=== PATIENT | male | born 1935 | race Caucasian/White ===

== ENCOUNTER 2016-11-12 15:43 | Inpatient (IN) ==
[2016-11-12] MEDS ORDERED: Ondansetron 4 MG/2 ML VIAL IVP ONE (17:53)
[2016-11-12] MEDS ORDERED: *HR* Morphine 2 MG/ML SYRINGE IVP ONE (17:53)
[2016-11-12] MEDS ORDERED: 0.9 % Sodium Chloride 1,000 ML IVC ONE (17:53)
[2016-11-12 18:19] LABS: Basophils % 0.4 %; Eosinophils # 0.1 K/mcL (0.0-0.6); Eosinophils % 0.7 %; Hematocrit 38.9 % (37.5-50.1); Hemoglobin 12.8 g/dL (12.9-16.9); Lymphocytes # 0.5 K/mcL (0.6-4.6); Mean Corpuscular HGB Conc 32.9 g/dL (31.6-35.5); Mean Corpuscular Volume 97.3 fL (83.0-100.0); Mean Platelet Volume 9.2 fL (9.4-12.4); Monocytes # 0.4 K/mcL (0.0-1.3); Neutrophils # 6.2 K/mcL (1.6-8.9); Platelet Count 165 K/mcL (140-400); Red Cell Distribution Width 14.6 % (11.5-14.5); Segmented Neutrophils % 86.9 %
[2016-11-12 18:25] LABS: INR 1.1; Prothrombin Time 11.8 Seconds (9.4-12.1)
[2016-11-12 18:27] LABS: Activated Partial Thrombo Time 31.9 Seconds (26.0-36.0)
[2016-11-12 18:31] LABS: BUN/Creatinine Ratio 21 (6-26); Blood Urea Nitrogen 24 mg/dL (8-26); Calcium 9.5 mg/dL (8.6-10.8); Carbon Dioxide 24 mEq/L (19-29); Chloride 107 mEq/L (98-109); Glucose 89 mg/dL (70-99); Osmolality,Calculated 296 (280-300); Potassium 4.3 mEq/L (3.5-4.5); Sodium 141 mEq/L (136-145); eGFR For African Americans > 60 (> 60); eGFR For Non-African Americans > 60 (> 60)
--- NOTE | 2016-11-12 18:52 | Emergency Department Note ---
Disposition Clinical Impression: Esophageal cancer Qualifiers: Malignant neoplasm of esophagus location: unspecified location Qualified Code(s ): C15.9 - Malignant neoplasm of esophagus, unspecified Dysphagia Qualifiers: Dysphagia type: unspecified Qualified Code(s): R13.10 - Dysphagia, unspecified Disposition: Still a Patient Condition: Good General Adult HPI - General Chief complaint: ED General Medical Stated complaint: vomiting Time Seen by Provider: 11/12/16 17:52 Source: patient, family Limitations: no limitations, physical limitation Nursing Notes Reviewed: Yes Vital Signs Reviewed: Yes - History of Present Illness HPI Narrative: 81-year-old male with a history of esophageal cancer presents with concerns of difficulty swallowing. Patient states he has had increased difficulty with swallowing over the past few weeks however yesterday he has been unable to tolerate even fluids. Patient states this is been an ongoing issue, he had a history of esophageal resection 4 years ago. He also had a history of an esophageal dilation. Patient states he was scheduled for an endoscopy with Dr. Rosas for evaluation of possible stricture with possible further endoscopy. Patient denies fever, chills, nausea, vomiting. He does feel mildly lightheaded because he has been unable to tolerate fluids. Patient does report chest pain to the sternal area that radiates to his back. He denies diaphoresis , palpitations, shortness of breath. Pain Scale: 6 - Related Data Home Medications Medication Instructions Recorded Confirmed No Known Home Drugs 08/01/15 11/12/16 Allergies Allergy/AdvReac Type Severity Reaction Status Date / Time No Known Allergies Allergy Verified 11/12/16 19:55 All systems ED: reviewed and negative except as stated. Past Medical History - Past Medical History Attestation: Yes The following information was validated with the patient. Source: patient Medical history: Reports: cancer Psychiatric history: Reports: no psych history - Social History Smoking Status: Never smoker Smokeless Tobacco Status: No Alcohol use: Reports: none Drug use: Reports: none Physical Exam General: Alert and in no acute distress Skin: Warm, dry, intact Head: Normocephalic and atraumatic Neck: Supple, trachea midline and no tenderness Cardiovascular: RRR, 6 systolic murmur present on exam. normal perfusion Respiratory: CTAB, no wheezing, cough, or respiratory distress Musculoskeletal: Normal strength, no tenderness, swelling or deformity GI: Soft, nontender, nondistended. Bowel sounds present Neuro: A&O to person, place, time and situation. No focal deficits noted on exam Psychiatric: cooperative and appropriate mood and affect. - General Limitations: physical limitation General appearance: alert, in no apparent distress Course Vital Signs Temperature 97.4 F L 11/12/16 15:50 Pulse Rate 78 11/12/16 15:50 Respiratory Rate 16 11/12/16 15:50 Blood Pressure 122/79 11/12/16 15:50 O2 Sat by Pulse Oximetry 99 11/12/16 15:50 Temperature 97.4 F L 11/12/16 15:50 Pulse Rate 69 11/12/16 19:09 Respiratory Rate 18 11/12/16 19:58 Blood Pressure 137/89 11/12/16 19:58 O2 Sat by Pulse Oximetry 97 11/12/16 19:09 Oxygen Delivery Oxygen Delivery Room Air Medical Decision Making - MDM Narrative Medical decision making narrative: Spoke with Dr. Pizano who was on for endoscopy. She advised to obtain a XR upper GI series and admit to the hospitalist to see GI in the AM. I was initially told GI not available tomorrow and was going to transfer pt to [facility]. Dr. Pizano called again specifically to state Dr. Escalona present in the Hospital tomorrow for consult. Pt tolerating secretions in the ED. VSS. pt feels comfortable with the plan for admission. - Medical Records Medical records reviewed: Yes I reviewed the patient's medical records. - Lab Data Lab results reviewed: Yes I reviewed the patient's lab results. Result diagrams: 11/12/16 17:44 11/12/16 17:44 Lab Results 11/12/16 11/12/16 11/12/16 Range/Units 17:44 17:44 18:12 WBC 7.1 (4.3-11.1) K/mcL RBC 4.00 L (4.19-5.50) M/mcL Hgb 12.8 L (12.9-16.9) g/dL Hct 38.9 (37.5-50.1) % MCV 97.3 (83.0-100.0) fL MCH 32.0 (28.0-33.3) pg MCHC 32.9 (31.6-35.5) g/dL RDW 14.6 H (11.5-14.5) % Plt Count 165 (140-400) K/mcL MPV 9.2 L (9.4-12.4) fL Immature Gran % 0.0 (0-4) % Seg Neutrophils % 86.9 % Lymphocytes % 7.0 % Monocytes % 5.0 % Eosinophils % 0.7 % Basophils % 0.4 % Neutrophils # 6.2 (1.6-8.9) K/mcL Lymphocytes # 0.5 L (0.6-4.6) K/mcL Monocytes # 0.4 (0.0-1.3) K/mcL Eosinophils # 0.1 (0.0-0.6) K/mcL Basophils # 0.0 (0.0-0.2) K/mcL PT 11.8 (9.4-12.1) Seconds INR 1.1 APTT 31.9 (26.0-36.0) Seconds Sodium 141 (136-145) mEq/L Potassium 4.3 (3.5-4.5) mEq/L Chloride 107 (98-109) mEq/L Carbon Dioxide 24 (19-29) mEq/L BUN 24 (8-26) mg/dL Creatinine 1.15 (0.72-1.25) mg/dL Est GFR ( Amer) > 60 (> 60) Est GFR (Non-Af Amer) > 60 (> 60) BUN/Creatinine Ratio 21 (6-26) Glucose 89 (70-99) mg/dL Calculated Osmolality 296 (280-300) Calcium 9.5 (8.6-10.8) mg/dL Troponin I (0-0.03) ng/mL 11/12/16 Range/Units 18:12 WBC (4.3-11.1) K/mcL RBC (4.19-5.50) M/mcL Hgb (12.9-16.9) g/dL Hct (37.5-50.1) % MCV (83.0-100.0) fL MCH (28.0-33.3) pg MCHC (31.6-35.5) g/dL RDW (11.5-14.5) % Plt Count (140-400) K/mcL MPV (9.4-12.4) fL Immature Gran % (0-4) % Seg Neutrophils % % Lymphocytes % % Monocytes % % Eosinophils % % Basophils % % Neutrophils # (1.6-8.9) K/mcL Lymphocytes # (0.6-4.6) K/mcL Monocytes # (0.0-1.3) K/mcL Eosinophils # (0.0-0.6) K/mcL Basophils # (0.0-0.2) K/mcL PT (9.4-12.1) Seconds INR APTT (26.0-36.0) Seconds Sodium (136-145) mEq/L Potassium (3.5-4.5) mEq/L Chloride (98-109) mEq/L Carbon Dioxide (19-29) mEq/L BUN (8-26) mg/dL Creatinine (0.72-1.25) mg/dL Est GFR ( Amer) (> 60) Est GFR (Non-Af Amer) (> 60) BUN/Creatinine Ratio (6-26) Glucose (70-99) mg/dL Calculated Osmolality (280-300) Calcium (8.6-10.8) mg/dL Troponin I 0.00 (0-0.03) ng/mL - Radiology Data Radiology results reviewed: Yes I reviewed the patient's radiology results. - EKG Data EKG #1 EKG attestation: Yes I reviewed and interpreted this EKG. EKG results narrative: ECG - interpreted by ED physician. Rate 86, normal sinus rhythm, no STEMI, NC, QT intervals, and QRS within normal limits
[2016-11-12] MEDS ORDERED: *HR* Morphine 2 MG/ML SYRINGE IVP PRN (20:43)
[2016-11-12] MEDS ORDERED: Ondansetron 4 MG/2 ML VIAL IVP PRN (20:43)
[2016-11-12] MEDS ORDERED: Naloxone 0.4 MG/ML INJ IVP PRN (20:43)
--- NOTE | 2016-11-12 20:50 | Internal Med History&Physical ---
Date of Encounter: 11/12/16 Time of Encounter: 20:35 Assessment and Plan (1) Dysphagia Current visit: Yes Status: Acute Acute dysphagia - secondary to esophageal stricture at the level of esophagogastric anastomosis NPO, IV fluids, IV Morphine when necessary IV Zofran when necessary, IV Protonix daily Chest x-ray - calcified pleural plaques, small bilateral pleural effusion otherwise no acute process Upper GI series - minimal passage of contrast into the gastric pull-up, concerning for stricture EKG - normal sinus rhythm with no acute ST-T changes Troponin - negative Gastroenterology consult pending - patient will likely need EGD with dilation Surgery consult - ED physician discussed with Dr. Pizano, advised GI consult as Dr. Escalona is available tomorrow Cardiac telemetry, labs in a.m. 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 and status post esophagectomy with gastric pull- through (2011), now in remission Qualifiers: Malignant neoplasm of esophagus location: unspecified location Qualified Code(s): C15.9 - Malignant neoplasm of esophagus, unspecified (3) Weight loss, unintentional Current visit: Yes Status: Chronic Unclear etiology - unintentional weight loss for the past one year possibly due to poor PO intake (4) DVT prophylaxis Current visit: Yes Status: Acute Continue heparin subcutaneous Internal Medicine - H&P: HPI Chief complaint: Vomiting and difficulty swallowing Admitted From: Emergency Dept Plans for Post Hospital Care: Home History of present illness: Mr. 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 Patient presents to the ED with complaints of vomiting and difficulty swallowing. On examination patient is awake and alert. Not in any distress. Sitting up comfortably. Able to provide HISTORY. No family members at bedside. Patient states he initially developed some generalized chest discomfort a few weeks ago. He had discussed with his surgeon, and was advised to follow up as outpatient for evaluation of possible esophageal stricture. About 2 days ago patient states he had difficulty swallowing soft foods and even liquids. He states that he was bringing up everything that he would try to eat or drink. Symptoms are worse with food intake. No alleviating factors. He states he usually eats about 6 small meals per day ever since he had his surgery in 2011. Patient also reports mild lightheadedness as he has not had any food or fluid intake for the past 2 days. He states he does have chest discomfort with food intake which is on the chest and radiates to her back at times. He denies shortness of breath, denies dizziness, denies headache or palpitations. No fever or abdominal pain or diarrhea or chills or night sweats. Patient does complain of unintentional weight loss over the past one year. States he has lost almost 30-40 pounds. Initial evaluation in the ED with upper GI series revealed minimal passage of contrast, concerning for stricture at the level of the esophagogastric anastomosis. No other acute abnormalities. ED physician discussed with on- call surgeon, and was advised to consult GI. Patient is being admitted for esophageal stricture. He will be kept nothing by mouth and will be on IV fluids. GI consult is pending. Patient will likely need EGD with esophageal stricture dilation. Patient has been explained about his condition and plan of care. He understood and agreed. No unanswered questions. CODE STATUS full code. Past Med Surg Social Fam HX - Past Medical History Medical history: cancer Psychiatric history: no psych history - Past Surgical History Surgical History: other (Esophagectomy with gastric pull-through in 2011,, esophageal dilation, tonsillectomy) - Social History Smoking Status: Former smoker Smokeless Tobacco Status: No Alcohol use: rarely Drug use: none Current living situation: Home - Independent - Family History Brother Hx Family Medical Disorders: Yes Internal Medicine - H&P: Meds No Known Home Drugs 08/01/15 [History] Allergies No Known Allergies Allergy (Verified 11/12/16 19:55) All Systems PM: A 10-system review of systems was performed and is negative for pertinent findings except as documented above in the HPI. - Constitutional Constitutional: fatigue, weakness, weight loss, no fever(s), no falls, no night sweats - EENT Eyes: no blurry vision - Cardiovascular Cardiovascular ROS IM: chest pain (Chest discomfort), lightheadedness, no diaphoresis, no dyspnea, no dyspnea on exertion, no edema, no orthopnea, no syncope - Respiratory Respiratory: no cough, no dyspnea, no hemoptysis, no dyspnea on exertion, no chest congestion - Gastrointestinal Gastrointestinal: dysphagia, nausea, vomiting, no abdominal pain, no belching, no bloating, no constipation, no cramping, no diarrhea, no hematochezia, no melena - Genitourinary Genitourinary ROS male: no dysuria - Musculoskeletal Musculoskeletal ROS IM: no arthralgias - Neurological Neurological ROS: no abnormal gait, no abnormal speech, no dizziness, no focal weakness, no loss of vision, no numbness, no tingling - Constitutional Vitals: Temp Pulse Resp BP Pulse Ox 97.6 F 73 16 137/77 100 11/12/16 20:15 11/12/16 20:15 11/12/16 20:15 11/12/16 20:15 11/12/16 20:15 General appearance: Present: A&O X 3, pleasant, no acute distress, underweight, loss of weight, answers questions appropriately Exam: Frail appearing - Head Head exam: Present: atraumatic - Eye Eye exam: Present: EOMI - ENT ENT exam: Present: mucous membranes dry - Neck Neck exam general surgery: Present: supple - Respiratory Respiratory exam: Present: CTAB. Absent: rales, rhonchi, wheezes, tachypnea - Cardiovascular Cardiovascular exam: Present: RRR, +S1, +S2 - GI/Abdominal GI/Abdominal exam: Present: soft, no peritoneal signs. Absent: distended, firm , guarding, rigid, tenderness - Extremities Exam Extremities exam: Present: radial pulses palpable and symetrical. Absent: cyanotic, pedal edema, tenderness - Neurological Exam Neurological exam: Present: alert, oriented X3, no focal deficits. Absent: facial droop, speech deficit Internal Med - H&P Results - Labs CBC & Chem 7: 11/12/16 17:44 11/12/16 17:44
[2016-11-12] MEDS: Pantoprazole 40 MG VIAL IVP SCH (21:46)
[2016-11-13] MEDS ORDERED: *HR* Heparin 5,000 UNIT/ML VIAL SQ SCH (06:00)
[2016-11-13] MEDS ORDERED: Dextrose Gel 15 GM PO PRN ×2 (06:02)
[2016-11-13] MEDS ORDERED: D5% in Water 1,000 ML IVC PRN (06:02)
[2016-11-13] MEDS: 0.9 % Sodium Chloride 1,000 ML IVC SCH ×3 (06:15→19:20)
[2016-11-13] MEDS: *HR* Dextrose 50 % in Water (Syg) 50 ML SYRINGE IVP PRN ×2 (06:16→16:20)
[2016-11-13 06:19] LABS: Bilirubin,Urine Small (Negative); Blood,Urine Negative (Negative); Clarity,Urine Cloudy (Clear); Color,Urine Yellow (Yellow); Glucose,Urine (UA) Normal (Normal); Ketones,Urine 15 mg/dL (Negative); Leukocyte Esterase,Urine Negative (Negative); Nitrite,Urine Negative (Negative); PH,Urine 5.5 pH Units (5.0-8.0); Protein,Urine Negative (Neg-Trace); Urobilinogen,Urine Normal (Normal)
[2016-11-13 06:23] LABS: Hyaline Casts,Urine None Seen per lpf (None-Few); RBC,Urine 0-3 per hpf (0-3); Squamous Epithelial Cell,Urine Moderate per lpf (None-Few)
[2016-11-13 06:31] LABS: Basophils % 0.5 %; Eosinophils # 0.1 K/mcL (0.0-0.6); Eosinophils % 1.3 %; Hematocrit 34.8 % (37.5-50.1); Immature Granulocytes % 0.3 % (0-4); Immature Platelets 1.4 % (1.1-6.1); Lymphocytes # 0.4 K/mcL (0.6-4.6); Lymphocytes % 6.7 %; Mean Corpuscular HGB Conc 32.2 g/dL (31.6-35.5); Mean Corpuscular Hemoglobin 31.7 pg (28.0-33.3); Mean Corpuscular Volume 98.6 fL (83.0-100.0); Mean Platelet Volume 8.6 fL (9.4-12.4); Monocytes # 0.4 K/mcL (0.0-1.3); Monocytes % 6.2 %; Neutrophils # 5.2 K/mcL (1.6-8.9); Platelet Count 189 K/mcL (140-400); Red Blood Count 3.53 M/mcL (4.19-5.50); Red Cell Distribution Width 14.7 % (11.5-14.5)
[2016-11-13 06:37] LABS: Hemoglobin 11.2 g/dL (12.9-16.9)
[2016-11-13 06:38] LABS: Bacteria,Urine Few per hpf (None-Few)
[2016-11-13 06:45] LABS: BUN/Creatinine Ratio 25 (6-26); Blood Urea Nitrogen 25 mg/dL (8-26); Calcium 8.9 mg/dL (8.6-10.8); Carbon Dioxide 28 mEq/L (19-29); Chloride 108 mEq/L (98-109); Glucose 69 mg/dL (70-99); Magnesium 2.1 mg/dL (1.6-2.6); Osmolality,Calculated 297 (280-300); Potassium 4.2 mEq/L (3.5-4.5); Sodium 142 mEq/L (136-145); eGFR For African Americans > 60 (> 60); eGFR For Non-African Americans > 60 (> 60)
[2016-11-13] MEDS: Pantoprazole 40 MG VIAL IVP SCH (09:09)
--- NOTE | 2016-11-13 10:15 | Internal Med Progress Note ---
Date of Encounter: 11/13/16 Time of Encounter: 10:12 - Assessment and plan (1) Dysphagia Current Visit: Yes Status: Acute Assessment and plan: Patient presents with gradually progressive dysphagia to both solids and liquids. Patient is status post esophagectomy with gastric pull-up for esophageal cancer. Case discussed with gastroenterology. Patient underwent EGD that showed copious amount of food particles in the remaining esophagus. Recommend clear liquid diet, repeat EGD tomorrow under general anesthesia. Hold medical anticoagulation for DVT prophylaxis. Qualifiers: Dysphagia type: esophageal phase Qualified Code(s): R13.14 - Dysphagia, pharyngoesophageal phase (2) Weight loss, unintentional Current Visit: Yes Status: Chronic Assessment and plan: Likely due to dysphagia and poor oral intake. (3) Esophageal cancer Current Visit: Yes Status: Resolved Qualifiers: Malignant neoplasm of esophagus location: unspecified location Qualified Code(s): C15.9 - Malignant neoplasm of esophagus, unspecified - Subjective Interval history: No abdominal pain, nausea, vomiting; does have dysphagia to solids and liquids; awaiting GI evaluation and possible EGD today; - Constitutional Vitals: Temp Pulse Resp BP Pulse Ox 98.1 F 83 16 127/70 100 11/13/16 07:19 11/13/16 07:19 11/13/16 07:19 11/13/16 07:19 11/13/16 07:19 General appearance: Present: cachectic, A&O X 3, loss of weight, answers questions appropriately - Respiratory Respiratory exam: Present: CTAB. Absent: accessory muscle use, rales, rhonchi, wheezes - Cardiovascular Cardiovascular exam: Present: RRR, +S1, +S2. Absent: diastolic murmur, gallop, rubs, systolic murmur - GI/Abdominal GI/Abdominal exam: Present: normal bowel sounds, soft, no peritoneal signs. Absent: distended, tenderness - Extremities Exam Extremities exam: Present: full ROM, warm, radial pulses palpable and symetrical. Absent: calf tenderness, cyanotic, pedal edema Internal Medicine: Result - Labs CBC & Chem 7: 11/13/16 06:08 11/13/16 06:08 Labs: Short CBC 11/13/16 Range/Units 06:08 WBC 6.1 (4.3-11.1) K/mcL Hgb 11.2 L D (12.9-16.9) g/dL Hct 34.8 L (37.5-50.1) % Plt Count 189 (140-400) K/mcL Neutrophils # 5.2 (1.6-8.9) K/mcL BMP 11/13/16 06:08 Sodium 142 Potassium 4.2 Chloride 108 Carbon Dioxide 28 BUN 25 Creatinine 0.99 Glucose 69 L Calcium 8.9 Urine 11/13/16 Range/Units 05:50 Urine Color Yellow (Yellow) Urine Clarity Cloudy A (Clear) Urine pH 5.5 (5.0-8.0) pH Units Ur Specific [place] 1.030 H (1.010-1.025) Urine Protein Negative (Neg-Trace) mg/dL Urine Glucose (UA) Normal (Normal) mg/dL - ABG Interpretation ABG results: PT/INR, D-dimer PT 11.8 Seconds (9.4-12.1) 11/12/16 18:12 Consult Discharge Plan - Plan Referrals: Glenn Riley DO [Primary Care Provider] -
[2016-11-13] MEDS ORDERED: Simethicone 40 MG/0.6 ML MLS IR ONE (13:20)
[2016-11-13] MEDS ORDERED: Tetracaine/Benzocaine/Butamben 200MG/SPRAY (100SPY/BOT) MM ONE (13:20)
--- NOTE | 2016-11-13 13:33 | Anesthesia Evaluation PreOp ---
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: Denies Any Significant HX Other Medical History: Other (hx esophageal ca s/p surgery and chemo/radiation in 2011; recent dysphagia and weight loss) Anesthesia History: No Prior Anesthetic Complications Alcohol Use: rarely Drug use: none Medications and Allergies No Known Home Drugs 08/01/15 [History] Allergies No Known Allergies Allergy (Verified 11/12/16 19:55) - Meds/Allergy Pre-op Review Medications Reviewed: Yes Allergies Reviewed: Yes Beta Blockers on Current Med List: No Anesthesia Results - Labs 11/13/16 06:08 11/13/16 06:08 - Imaging EKG: report reviewed, image reviewed (SB) Anesthesia Exam Last Vital Signs Temp 97.9 F 11/13/16 13:17 Pulse 65 11/13/16 13:17 Resp 16 11/13/16 13:17 BP 142/79 11/13/16 13:17 Pulse Ox 99 11/13/16 13:17 Weight: 59 kg NPO (# of Hours): >> 8 hrs - HEENT Pupil (Motor): Pupils equal, EOMI Mallampati: I Teeth: Normal Oral Opening: Greater than 3 - FILTER PRESS TENDER HEAD LOC: Oriented FILTER PRESS TENDER HEAD Motor: Normal RUE, Normal LUE, Normal RLE, Normal LLE, Normal Face - Cardiac Rhythm: Regular Murmur: None - Pulmonary Breath Sounds: bilateral Clear Respiratory Effort: Symmetrical Anesthesia Assess/Plan ASA Score: 2 Modified [place] Scale for Level of Consciousness: Cooperative, oriented, and tranquil Anesthetic Plan: MAC Monitoring Plan: Standard Monitors Recovery Plan: PACU
--- NOTE | 2016-11-13 15:06 | Anesthesia Evaluation Post Op ---
Date of Encounter: 11/13/16 Time of Encounter: 15:05 - Vital Signs Vital Signs: 3 Vital Signs Time 1504 BP 126/79 Pulse 64 Resp 20 O2 Sat 99 - Lungs Lungs: Clear Ascult./Percussion - Airway Airway: Non-obstructed - Cardiovascular Regular Rate - Mental Status Mental Status: Asleep with brisk response to light stimulation - Nausea Vomiting Nausea Vomiting: Not Present - Hydration Hydration: NPO, Has not voided - Discharge PostOp Status: Transfer Patient to floor
[2016-11-13] MEDS: D5% in 0.45% NACL 1,000 ML IVC SCH (16:19)
--- NOTE | 2016-11-13 17:55 | Gastroenterology Consult Note ---
Date of Encounter: 11/13/16 Time of Encounter: 13:00 - Assessment and plan (1) Dysphagia Current Visit: Yes Status: Acute Assessment and plan: In this patient with a history of esophagus cancer status post chemoradiation and esophagectomy. Worsening dysphagia now along with weight loss concern is for recurrence of the tumor or stricture at the anastomosis site. Plan is for EGD today with possible dilation if found to have a stricture Qualifiers: Dysphagia type: esophageal phase Qualified Code(s): R13.14 - Dysphagia, pharyngoesophageal phase (2) Esophageal cancer Current Visit: Yes Status: Resolved Assessment and plan: Has had chemoradiation and then surgery and is being followed with oncology currently in remission. Qualifiers: Malignant neoplasm of esophagus location: unspecified location Qualified Code(s): C15.9 - Malignant neoplasm of esophagus, unspecified - Time Spent With Patient Total time spent is greater than 50% in coordination of care (as documented) at patient's floor/unit and/or counseling patient: GI History of Present Illness - Data of Consult Consult date: 11/13/16 Requesting Physician: Bina Reyes MD - Consult Narrative Reason for consult: Dysphagia in this patient with a history of esophagus cancer History of present illness: Mr. 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 Patient has been having difficulty swallowing for the last 6-8 month. And has lost about 100 pounds in the last 1 year. Lately his been having trouble swallowing liquids as well. Admitted this time because of dysphagia and had a barium swallow done which showed a stricture at the esophageal gastric anastomosis. Past Med Surg Social Fam HX - Past Medical History Medical history: cancer Psychiatric history: no psych history - Past Surgical History Surgical History: other (Esophagectomy with gastric pull-through in 2011,, esophageal dilation, tonsillectomy) - Social History Smoking Status: Former smoker Smokeless Tobacco Status: No Alcohol use: rarely Drug use: none - Family History Brother Hx Family Medical Disorders: Yes Review of Systems: GI: as per [facility] GENERAL: denies fever, has some chills EYES: denies yellow discoloration ENT: denies pain with swallowing or difficulty swallowing CARDIO: denies chest pain, palpitations RESP: denies shortness of breath or wheezing : denies change in color of urine NEURO: denies any weakness HEME: Denies any bruising MS: denies joint pain, joint swelling or back pain. DERM: denies rash or itching PSYCH: denies history of: depression or anxiety - Constitutional Vitals: Temp Pulse Resp BP Pulse Ox 97.4 F L 57 14 141/71 100 11/13/16 16:08 11/13/16 16:08 11/13/16 16:08 11/13/16 16:08 11/13/16 16:08 General appearance: Present: cachectic, A&O X 3 - Head Head exam: Present: atraumatic, normocephalic - Eye Eye exam: Present: conjunctival injection, sclera anicteric - Neck Additional comments: Left side of the neck patient has a long scar of his previous esophageal surgery - Respiratory Additional comments: Bilateral good air entry - Cardiovascular Additional comments: S1-S2 and rhythm is regular, left upper chest has a port in place - GI/Abdominal Additional comments: Sunken stomach due to significant wasting loss but no focal tenderness does has scar in upper abdomen because of previous esophagus surgery - Extremities Exam Extremities exam: Present: normal inspection, warm - Skin Skin exam: Present: dry, warm Results - Labs CBC & Chem 7: 11/13/16 06:08 11/13/16 06:08 Labs: Last Result Calcium 8.9 mg/dL (8.6-10.8) 11/13/16 06:08 Troponin I 0.00 ng/mL (0-0.03) 11/12/16 18:12 Entire Visit Hgb 11.2 g/dL (12.9-16.9) L D 11/13/16 06:08 Hct 34.8 % (37.5-50.1) L 11/13/16 06:08 PT 11.8 Seconds (9.4-12.1) 11/12/16 18:12 - ABG ABG results: PT/INR, D-dimer PT 11.8 Seconds (9.4-12.1) 11/12/16 18:12 Consult Discharge Plan - Plan Referrals: Glenn Riley DO [Primary Care Provider] -
[2016-11-14] MEDS: D5% in 0.45% NACL 1,000 ML IVC SCH ×2 (04:11→16:43)
[2016-11-14 05:17] LABS: Basophils % 0.2 %; Eosinophils # 0.1 K/mcL (0.0-0.6); Eosinophils % 0.5 %; Hemoglobin 12.5 g/dL (12.9-16.9); Immature Granulocytes % 0.4 % (0-4); Lymphocytes # 0.4 K/mcL (0.6-4.6); Lymphocytes % 3.9 %; Mean Corpuscular HGB Conc 32.9 g/dL (31.6-35.5); Mean Corpuscular Hemoglobin 32.1 pg (28.0-33.3); Mean Corpuscular Volume 97.4 fL (83.0-100.0); Mean Platelet Volume 9.2 fL (9.4-12.4); Monocytes # 0.5 K/mcL (0.0-1.3); Monocytes % 4.6 %; Neutrophils # 9.9 K/mcL (1.6-8.9); Platelet Count 181 K/mcL (140-400); Red Cell Distribution Width 14.3 % (11.5-14.5); Segmented Neutrophils % 90.4 %
[2016-11-14 05:31] LABS: BUN/Creatinine Ratio 21 (6-26); Blood Urea Nitrogen 19 mg/dL (8-26); Calcium 8.9 mg/dL (8.6-10.8); Carbon Dioxide 28 mEq/L (19-29); Chloride 106 mEq/L (98-109); Glucose 94 mg/dL (70-99); Magnesium 1.9 mg/dL (1.6-2.6); Osmolality,Calculated 292 (280-300); Potassium 4.1 mEq/L (3.5-4.5); Sodium 140 mEq/L (136-145); eGFR For African Americans > 60 (> 60); eGFR For Non-African Americans > 60 (> 60)
--- NOTE | 2016-11-14 07:51 | Electrocardiograph Report ---
[address] [address] Test Date: 2016-11-13 Pat Name: Benjamin Munoz Department: 115 Room: 3A46 Gender: M Media Assistant: JUAN : 1935 Requested By: Marc Rondon Order Number: [id number] Reading MD: Wil Simon MD Measurements Intervals [place] Rate: 53 P: 75 TX: 169 QRS: 35 QRSD: 90 T: 44 QT: 456 QTc: 440 Interpretive Statements SINUS BRADYCARDIA Electronically Signed On 11-14-2016 7:49:53 EDT by Wil Simon MD
[2016-11-14] MEDS: Pantoprazole 40 MG VIAL IVP SCH (09:02)
[2016-11-14 11:57] LABS: Hemoglobin A1C 5.5 %
--- NOTE | 2016-11-14 14:50 | Anesthesia Evaluation PreOp ---
Date of Encounter: 11/14/16 Time of Encounter: 14:47 - Past History Planned Operation: EGD Cardiac History: Denies any Significant Hx Pulmonary History: Smoker (Occasional) PORTER BAGGAGE History: Denies Any Significant HX Other Medical History: Denies Any Significant HX, Other (Esophageal CA) Anesthesia History: No Prior Anesthetic Complications, Past Anesthesia ( Esophagectomy s/p radiation/Chemo) Alcohol Use: rarely Drug use: none Medications and Allergies No Known Home Drugs 08/01/15 [History] Allergies No Known Allergies Allergy (Verified 11/12/16 19:55) - Meds/Allergy Pre-op Review Medications Reviewed: Yes Allergies Reviewed: Yes Beta Blockers on Current Med List: No Anesthesia Results - Labs 11/14/16 04:25 11/14/16 04:25 - Imaging EKG: image reviewed (SB) Anesthesia Exam O2 Sat Weight 59.92 kg Weight 59.92 kg O2 Sat by Pulse Oximetry 100 O2 Sat by Pulse Oximetry 97 O2 Sat by Pulse Oximetry 97 O2 Sat by Pulse Oximetry 97 O2 Sat by Pulse Oximetry 99 O2 Sat by Pulse Oximetry 99 O2 Sat by Pulse Oximetry 100 Vital Signs Temp Pulse Resp BP Pulse Ox 97.4 F L 78 16 122/79 99 11/12/16 15:50 11/12/16 15:50 11/12/16 15:50 11/12/16 15:50 11/12/16 15:50 Vital Signs/O2 Sat, Most Current Temp Pulse Resp BP Pulse Ox 97.4 F L 55 16 119/67 100 11/14/16 11:11 11/14/16 11:11 11/14/16 11:11 11/14/16 11:11 11/14/16 11:11 Height: 5'9'' Weight: 132# NPO (# of Hours): > 8 hrs Pain Scale: 0 Pain Scale Used: Numeric (1 - 10) - HEENT Pupil (Motor): Pupils equal, EOMI Mallampati: I Teeth: Normal Oral Opening: Greater than 3 - PORTER BAGGAGE LOC: Oriented PORTER [place]AGGAGE Motor: Normal RUE, Normal LUE, Normal RLE, Normal LLE, Normal Face PORTER BAGGAGE Sensory: Normal: RUE, LUE, RLE, LLE, Face - Cardiac Rhythm: Regular Murmur: None JVD: No Carotid Bruit: No - Pulmonary Breath Sounds: bilateral Clear Respiratory Effort: Symmetrical Anesthesia Assess/Plan ASA Score: 3 Modified Suraj Scale for Level of Consciousness: Cooperative, oriented, and tranquil Anesthetic Plan: General Autologous Blood: Yes Monitoring Plan: Standard Monitors Recovery Plan: PACU
--- NOTE | 2016-11-14 15:49 | Internal Med Progress Note ---
Date of Encounter: 11/14/16 Time of Encounter: 12:15 - Assessment and plan (1) Dysphagia Current Visit: Yes Status: Acute Assessment and plan: Patient presents with gradually progressive dysphagia to both solids and liquids. Patient is status post esophagectomy with gastric pull-up for esophageal cancer. Gastroenterology on board. Underwent EGD yesterday that showed copious amount of food particles in the remaining esophagus. awaiting repeat EGD today with general anesthesia and intubation, to remove food particles and prevent aspiration. Hold medical anticoagulation for DVT prophylaxis. Qualifiers: Dysphagia type: esophageal phase Qualified Code(s): R13.14 - Dysphagia, pharyngoesophageal phase (2) Weight loss, unintentional Current Visit: Yes Status: Chronic Assessment and plan: Likely due to dysphagia and poor oral intake. (3) Esophageal cancer Current Visit: Yes Status: Resolved Qualifiers: Malignant neoplasm of esophagus location: unspecified location Qualified Code(s): C15.9 - Malignant neoplasm of esophagus, unspecified (4) Raynaud phenomenon Current Visit: Yes Status: Acute Assessment and plan: Cyanotic distal fingers likely due to Raynaud phenomenon. Supportive care with hot packs. Qualifiers: Raynaud?s-associated gangrene presence: without gangrene Qualified Code(s) : I73.00 - Raynaud's syndrome without gangrene - Subjective Interval history: No abdominal pain, nausea, vomiting; does have dysphagia to solids and liquids; underwent EGD yesterday which showed significant amount of solid food in upper esophagus, awaiting repeat EGD and clean out today. Noted to have left arm swelling associated with blisters. Also has cyanotic fingertips in the right hand. - Constitutional Vitals: Temp Pulse Resp BP Pulse Ox 97.4 F L 55 16 119/67 100 11/14/16 11:11 11/14/16 11:11 11/14/16 11:11 11/14/16 11:11 11/14/16 11:11 General appearance: Present: cachectic, A&O X 3, loss of weight, answers questions appropriately - Respiratory Respiratory exam: Present: CTAB. Absent: accessory muscle use, rales, rhonchi, wheezes - Cardiovascular Cardiovascular exam: Present: RRR, +S1, +S2. Absent: diastolic murmur, gallop, rubs, systolic murmur - GI/Abdominal GI/Abdominal exam: Present: normal bowel sounds, soft, no peritoneal signs. Absent: distended, tenderness - Extremities Exam Extremities exam: Present: normal inspection (Mild cyanosis in the tips of second fourth and fifth fingers of right hand. Bilateral brachial and radial pulses palpable 2+), warm, radial pulses palpable and symetrical. Absent: calf tenderness, cyanotic, pedal edema Internal Medicine: Result - Labs CBC & Chem 7: 11/14/16 04:25 11/14/16 04:25 Labs: Short CBC 11/14/16 Range/Units 04:25 WBC 10.9 D (4.3-11.1) K/mcL Hgb 12.5 L (12.9-16.9) g/dL Hct 38.0 (37.5-50.1) % Plt Count 181 (140-400) K/mcL Neutrophils # 9.9 H (1.6-8.9) K/mcL BMP 11/14/16 04:25 Sodium 140 Potassium 4.1 Chloride 106 Carbon Dioxide 28 BUN 19 Creatinine 0.91 Glucose 94 Calcium 8.9 - ABG Interpretation ABG results: PT/INR, D-dimer PT 11.8 Seconds (9.4-12.1) 11/12/16 18:12 Consult Discharge Plan - Plan Referrals: Glenn Riley DO [Primary Care Provider] -
[2016-11-14] MEDS ORDERED: EPHEDrine 50 MG/ML VIAL ONE (18:29)
[2016-11-14] MEDS ORDERED: *HR* FentaNYL (PF) 100 MCG/2 ML VIAL ONE (18:34)
[2016-11-14] MEDS ORDERED: Lidocaine -MPF 2% 2 ML VIAL ONE (18:34)
[2016-11-14] MEDS ORDERED: *HR* Succinylcholine 200 MG/10 ML VIAL IVP ONE (18:34)
[2016-11-14] MEDS ORDERED: *HR* Propofol 200 MG/20 ML VIAL IVP ONE (18:34)
[2016-11-14] MEDS ORDERED: Ondansetron 4 MG/2 ML VIAL ONE (18:49)
[2016-11-14] MEDS ORDERED: Dexamethasone 4 MG/ML VIAL ONE (18:49)
--- NOTE | 2016-11-14 19:26 | Anesthesia Evaluation Post Op ---
Date of Encounter: 11/14/16 Time of Encounter: 19:26 - Vital Signs Vital Signs: Vital Signs/O2 Sat/Glucose, Most Current Temp Pulse Resp BP Pulse Ox 11/14/16 19:23 98.7 F 72 18 143/84 100 11/14/16 19:13 73 12 152/100 100 11/14/16 19:03 66 20 159/80 100 11/14/16 18:53 98.3 F 67 14 163/80 100 11/14/16 18:00 97.8 F 58 18 110/81 100 11/14/16 16:45 97.8 F 54 16 133/79 100 - Lungs Lungs: Clear Ascult./Percussion - Airway Airway: Non-obstructed - Cardiovascular Regular Rate - Mental Status Mental Status: Alert & Oriented, Answers Appropriately - Pain Pain Scale: 0 - Nausea Vomiting Nausea Vomiting: Not Present - Hydration Hydration: NPO, Has not voided - Discharge PostOp Status: Transfer Patient to floor
[2016-11-14] MEDS: 0.9 % Sodium Chloride 1,000 ML IVC SCH (19:36)
[2016-11-15] MEDS ORDERED: *HR* Propofol 200 MG/20 ML VIAL IVP ONE (07:26)
[2016-11-15] MEDS: Pantoprazole 40 MG VIAL IVP SCH (10:53)
[2016-11-15 11:11] VITALS: BP 111/65
--- NOTE | 2016-11-15 12:57 | Discharge Summary ---
Date of Encounter: 11/15/16 Time of Encounter: 12:55 - Discharge Diagnosis (1) Dysphagia Priority: Primary Status: Acute Qualifiers: Dysphagia type: esophageal phase Qualified Code(s): R13.14 - Dysphagia, pharyngoesophageal phase (2) Weight loss, unintentional Priority: Secondary Status: Chronic (3) Esophageal cancer Priority: Secondary Status: Resolved Qualifiers: Malignant neoplasm of esophagus location: unspecified location Qualified Code(s): C15.9 - Malignant neoplasm of esophagus, unspecified (4) Raynaud phenomenon Priority: Primary Status: Acute Qualifiers: Raynaud?s-associated gangrene presence: without gangrene Qualified Code(s) : I73.00 - Raynaud's syndrome without gangrene - Discharge Medications Prescriptions: Lactose-Reduced Food [Ensure High Protein] 1 bottle PO TID #90 can Omeprazole 20 mg PO DAILY #30 tablet. Sucralfate [Carafate] 1 gm PO BID 30 Days Home Medications: No Known Home Drugs 08/01/15 [History] Lactose-Reduced Food [Ensure High Protein] 1 bottle PO TID #90 can 11/15/16 [Rx] Omeprazole 20 mg PO DAILY #30 tablet. 11/15/16 [Rx] Sucralfate [Carafate] 1 gm PO BID 30 Days 11/15/16 [Rx] Allergies/Adverse Reactions: Allergies No Known Allergies Allergy (Verified 11/12/16 19:55) Date of admission: 11/12/16 20:43 Primary care physician: Glenn Riley, Consults: 11/12/16 20:48 Consult to Gastroenterology [CONS] Routine Consulting Provider: Gastroenterology Theresa Reason for Consult: ESOPHAGEAL stricture Call Completed: No 11/13/16 07:32 Consult to Nutrition [CONS] Routine Comment: Consulting Provider: NUTRITION Reason for Dietary Consult: MST Score 11/13/16 07:48 OT [Consult to Occupational Therapy] [CONS] Routine Comment: Evaluate, develop and implement POC Reason for Consult: discharge planning Discharging clinician: Bina Reyes Anticipated date of discharge: 11/15/16 - Patient Status Disposition: Home, Self-Care Condition: Good Functional capacity at discharge: independent ambulation Overall status at discharge: patient is progressing back to baseline - Discharge Instructions Instructions: Soft Diet (DC), Raynaud Disease (GEN) Follow Up With: Glenn Riley DO [Primary Care Provider] - 11/27/16 9:30 am Jose Escalona MD [Partnered Physician] - 12/06/16 4:30 pm Additional Instructions: F/up with PCP in1-2 weeks F/up with GI in 3-4 weeks - Diet and Activity Activity: resume usual activities as tolerated Diet: other (soft, chopped diet, blended meats only) Hospital course: Mr. Munoz is a 81 year old male with history of esophageal cancer status post esophagectomy and gastric pull-through surgery, was admitted with worsening dysphagia to solids and liquids. He was initially kept nothing by mouth with IV hydration. Gastroenterology was consulted and patient underwent EGD that showed significant amount of solid food in the upper part of his esophagus with proximal esophageal dilation but no stricture or mass at the site of anastomosis. He underwent repeat EGD under general anesthesia and intubation for complete cleanout of his esophagus, which he tolerated well. He is medically stable for discharge at this point. Case was discussed with gastroenterology and patient is being discharged with recommendations to follow only soft chopped diet and blended meats and to avoid large food pieces like steak. He will follow-up with oncology and gastroenterology as outpatient. - Time Spent with Patient Total time spent providing and/or coordinating discharge services: Greater than 30 minutes (45 min) - Constitutional Vitals: Temp Pulse Resp BP Pulse Ox 97.1 F L 83 15 111/65 94 11/15/16 11:09 11/15/16 11:09 11/15/16 11:09 11/15/16 11:09 11/15/16 11:09 General appearance: Present: cachectic, A&O X 3, loss of weight, answers questions appropriately - Cardiovascular Cardiovascular exam: Present: RRR, +S1, +S2. Absent: diastolic murmur, gallop, rubs, systolic murmur
== END 2016-11-15 13:35 | disposition home or self-care (01) | DRG 392 ==
LOC: 3ANU 15:43 → EMEROO 15:43 → 3ANU 19:59 → SUATTDRO 20:43 → 3ANU 11-13 22:22
PROVIDERS: ADMIT Internal Medicine; ATTEND Internal Medicine
PROC: ENDOEBX (2016-11-13 14:00)

== ENCOUNTER 2017-12-23 20:30 | Observation (INO) ==
[2017-12-23] MEDS ORDERED: Ondansetron 4 MG/2 ML VIAL IVP ONE (21:25)
[2017-12-23] MEDS ORDERED: 0.9 % Sodium Chloride 1,000 ML IVC ONE (21:25)
--- NOTE | 2017-12-23 21:37 | Emergency Department Note ---
Disposition Clinical Impression: History of esophageal cancer Dysphagia Qualifiers: Dysphagia type: unspecified Qualified Code(s): R13.10 - Dysphagia, unspecified Disposition: Admitted As Inpatient Condition: Fair Time of Disposition: 22:21 General Adult HPI - General Chief complaint: ED General Medical Stated complaint: Difficulty swallowing Time Seen by Provider: 12/23/17 20:46 Source: patient Mode of arrival: ambulatory Limitations: no limitations Nursing Notes Reviewed: Yes Vital Signs Reviewed: Yes - History of Present Illness HPI Narrative: 82-year-old male with history of esophageal cancer status post surgery chemotherapy and radiation 6 years ago percent for evaluation of dysphagia. Patient states symptom onset was over the past 24 hours. Patient's been not able swallow any liquids. States that he typically has these symptoms about once every 6 months and has to get esophageal dilation. Notes that he was dilated by Dr. Ralph hummel at [facility]. Patient states he has not been able to tolerate any oral intake given his dysphagia. Reports baseline nausea. No abdominal pain. No chest pain or shortness of breath. No fevers. Patient feels that his dysphagia is related to his chest and nothing in the upper esophagus. Pain Scale: 0 - Related Data Home Medications Medication Instructions Recorded Confirmed No Known Home Drugs 08/01/15 07/10/17 Allergies Allergy/AdvReac Type Severity Reaction Status Date / Time No Known Allergies Allergy Verified 07/10/17 13:03 All systems ED: reviewed and negative except as stated. Constitutional: Denies: fever Cardiovascular: Denies: chest pain Respiratory: Denies: cough, dyspnea Gastrointestinal: Reports: nausea. Denies: abdominal pain Past Medical History - Past Medical History Source: patient Medical history: Reports: cancer, kidney stones, pulmonary embolus Surgical history: Reports: cancer surgery, cholecystectomy, other Psychiatric history: Reports: no psych history - Social History Smoking Status: Never smoker Smokeless Tobacco Status: No Alcohol use: Reports: rarely Drug use: Reports: none Physical Exam - General Limitations: no limitations General appearance: alert, in no apparent distress, other (Holding a container spitting up secretions.) - Head Head exam: atraumatic, normocephalic, normal inspection - Eye Eye exam: Present: normal appearance, EOMI - ENT ENT exam: normal exam, mucous membranes moist - Neck Neck exam: Present: normal inspection, trachea midline - Chest Chest inspection: Present: normal inspection, symmetric chest wall rise - Respiratory Respiratory exam: Present: normal lung sounds bilaterally. Absent: respiratory distress - Cardiovascular Cardiovascular exam: Present: regular rate, normal rhythm. Absent: systolic murmur - Abdominal Exam Abdominal exam: Present: soft, Non-Tender - Extremities Exam Extremities exam: Present: normal inspection. Absent: pedal edema - Expanded Lower Extremity Exam Neurovascular/Tendon exam: Present: normal capillary refill - Back Exam Back exam: Present: normal inspection - Neurological Exam Neurological exam: Present: alert, oriented X3, CN II-XII intact - Skin Skin exam: Present: warm, dry, intact, normal color Course Course Narrative: Patient's records reviewed does show that he has esophageal dilation. Most recent was back in June of same year. Patient will be admitted to hospital service concerns of dysphagia with liquids. Discussed the case with Dr. Pizano who states to have the hospitals call Dr. Rosas in the morning. - Reevaluation(s) Reevaluation #1: Patient was seen and examined. Patient was given IV pain medication as he cannot tolerate his oral pain medication. No needs at this time. Time: 23:19 - Consultations Consultation #1: Spoke with Dr. Pizano who requested the hospitalist to call Dr. Rosas in the morning. This info will be given to the Hospitalist. Time: 21:39 Vital Signs Temperature 97.9 F 12/23/17 20:43 Pulse Rate 84 12/23/17 20:43 Respiratory Rate 26 12/23/17 20:43 Blood Pressure 122/83 12/23/17 20:43 O2 Sat by Pulse Oximetry 100 12/23/17 20:43 Temperature 97.9 F 12/23/17 20:43 Pulse Rate 83 12/23/17 23:05 Respiratory Rate 22 12/23/17 23:05 Blood Pressure 140/106 12/23/17 23:05 O2 Sat by Pulse Oximetry 100 12/23/17 23:05 Oxygen Delivery Oxygen Delivery Room Air Medical Decision Making - [facility] Narrative Medical decision making narrative: Patient presents with dysphagia with liquids. History of esophageal cancer. States he typically has to have esophagus dilated. Patient cannot tolerating oral intake and will need admission for IV fluids and monitoring. Initially spoke with Dr. Pizano who instructed The hospitalist call Dr. Rosas in the morning. Patient had basic labs and chest x-ray. At this point there is no need for any additional testing in the ED. There is no concerns for any central etiology of his dysphagia. Patient is agreeable this plan of care. - Lab Data Lab results reviewed: Yes I reviewed the patient's lab results. Result diagrams: 12/23/17 21:50 12/23/17 21:50 Lab Results 12/23/17 12/23/17 Range/Units 21:50 21:50 WBC 9.2 (4.3-11.1) K/mcL RBC 4.25 (4.19-5.50) M/mcL Hgb 14.1 (12.9-16.9) g/dL Hct 41.6 (37.5-50.1) % MCV 97.9 (83.0-100.0) fL MCH 33.2 (28.0-33.3) pg MCHC 33.9 (31.6-35.5) g/dL RDW 14.2 (11.5-14.5) % Plt Count 222 (140-400) K/mcL MPV 8.6 L (9.4-12.4) fL Immature Gran % 0.2 (0-4) % Seg Neutrophils % 90.9 % Lymphocytes % 3.4 % Monocytes % 5.3 % Eosinophils % 0.0 % Basophils % 0.2 % Neutrophils # 8.3 (1.6-8.9) K/mcL Lymphocytes # 0.3 L (0.6-4.6) K/mcL Monocytes # 0.5 (0.0-1.3) K/mcL Eosinophils # 0.0 (0.0-0.6) K/mcL Basophils # 0.0 (0.0-0.2) K/mcL Sodium 142 (136-145) mEq/L Potassium 5.1 (3.5-5.1) mEq/L Chloride 104 (98-107) mEq/L Carbon Dioxide 25 (23-29) mEq/L BUN 22 (8-23) mg/dL Creatinine 1.15 (0.70-1.30) mg/dL Est GFR ( Amer) > 60 (> 60) Est GFR (Non-Af Amer) > 60 (> 60) BUN/Creatinine Ratio 19 (6-26) Glucose 137 H (70-105) mg/dL Calculated Osmolality 299 (280-300) Calcium 9.8 (8.6-10.3) mg/dL - Radiology Data Radiology results reviewed: Yes I reviewed the patient's radiology results. Chest X-Ray 12/23/17 21:25 IMPRESSION: Possible distal dilatation of the esophagus. Otherwise, stable chest D/ / Gentry Flores MD / Gentry Flores MD Interpreting Provider: Gentry Flores MD racy - Khushboo Situation: Demographics Background: Presenting Complaint Assessment: Vital Signs, Course and respsone to treatment, Patient/Family Expectation Recommendation: Barrier(s) to disposition, Recommendation based on pending studies, treatments, or consults Khushboo Report Given to: Dr. Clifton Cuello Repor Time: 22:20
[2017-12-23 22:04] LABS: Basophils % 0.2 %; Hematocrit 41.6 % (37.5-50.1); Hemoglobin 14.1 g/dL (12.9-16.9); Immature Granulocytes % 0.2 % (0-4); Lymphocytes # 0.3 K/mcL (0.6-4.6); Lymphocytes % 3.4 %; Mean Corpuscular HGB Conc 33.9 g/dL (31.6-35.5); Mean Corpuscular Hemoglobin 33.2 pg (28.0-33.3); Mean Corpuscular Volume 97.9 fL (83.0-100.0); Mean Platelet Volume 8.6 fL (9.4-12.4); Monocytes # 0.5 K/mcL (0.0-1.3); Monocytes % 5.3 %; Neutrophils # 8.3 K/mcL (1.6-8.9); Platelet Count 222 K/mcL (140-400); Red Blood Count 4.25 M/mcL (4.19-5.50); Red Cell Distribution Width 14.2 % (11.5-14.5); Segmented Neutrophils % 90.9 %
[2017-12-23 22:19] LABS: BUN/Creatinine Ratio 19 (6-26); Blood Urea Nitrogen 22 mg/dL (8-23); Calcium 9.8 mg/dL (8.6-10.3); Carbon Dioxide 25 mEq/L (23-29); Chloride 104 mEq/L (98-107); Glucose 137 mg/dL (70-105); Osmolality,Calculated 299 (280-300); Potassium 5.1 mEq/L (3.5-5.1); Sodium 142 mEq/L (136-145); eGFR For Non-African Americans > 60 (> 60)
--- NOTE | 2017-12-23 22:23 | Emergency Department Note ---
Disposition Clinical Impression: History of esophageal cancer Dysphagia Qualifiers: Dysphagia type: unspecified Qualified Code(s): R13.10 - Dysphagia, unspecified Disposition: Admitted As Inpatient Condition: Fair Referrals: Glenn Riley DO [Primary Care Provider] - Forms: ED Satisfaction Letter, Work/School Release Time of Disposition: 22:21 General Adult HPI - General Chief complaint: ED General Medical Stated complaint: Difficulty swallowing Time Seen by Provider: 12/23/17 20:46 Source: patient Mode of arrival: ambulatory Limitations: no limitations Nursing Notes Reviewed: Yes Vital Signs Reviewed: Yes - History of Present Illness Pain Scale: 5 - Related Data Home Medications Medication Instructions Recorded Confirmed No Known Home Drugs 08/01/15 07/10/17 Allergies Allergy/AdvReac Type Severity Reaction Status Date / Time No Known Allergies Allergy Verified 07/10/17 13:03 Constitutional: Denies: fever Cardiovascular: Denies: chest pain Respiratory: Denies: cough, dyspnea Gastrointestinal: Reports: nausea. Denies: abdominal pain Past Medical History - Past Medical History Medical history: Reports: cancer, kidney stones, pulmonary embolus Surgical history: Reports: cancer surgery, cholecystectomy, other Psychiatric history: Reports: no psych history - Social History Smoking Status: Never smoker Smokeless Tobacco Status: No Alcohol use: Reports: rarely Drug use: Reports: none Physical Exam - General Limitations: no limitations General appearance: alert, in no apparent distress, other (Holding a container spitting up secretions.) Course Vital Signs Temperature 97.9 F 12/23/17 20:43 Pulse Rate 84 12/23/17 20:43 Respiratory Rate 26 12/23/17 20:43 Blood Pressure 122/83 12/23/17 20:43 O2 Sat by Pulse Oximetry 100 12/23/17 20:43 Temperature 97.9 F 12/23/17 20:43 Pulse Rate 82 12/23/17 21:46 Respiratory Rate 16 12/23/17 21:46 Blood Pressure 135/98 12/23/17 21:46 O2 Sat by Pulse Oximetry 100 12/23/17 21:46 Oxygen Delivery Oxygen Delivery Room Air Medical Decision Making - Lab Data Lab results reviewed: Yes I reviewed the patient's lab results. Result diagrams: 12/23/17 21:50 12/23/17 21:50 Lab Results 12/23/17 12/23/17 Range/Units 21:50 21:50 WBC 9.2 (4.3-11.1) K/mcL RBC 4.25 (4.19-5.50) M/mcL Hgb 14.1 (12.9-16.9) g/dL Hct 41.6 (37.5-50.1) % MCV 97.9 (83.0-100.0) fL MCH 33.2 (28.0-33.3) pg MCHC 33.9 (31.6-35.5) g/dL RDW 14.2 (11.5-14.5) % Plt Count 222 (140-400) K/mcL MPV 8.6 L (9.4-12.4) fL Immature Gran % 0.2 (0-4) % Seg Neutrophils % 90.9 % Lymphocytes % 3.4 % Monocytes % 5.3 % Eosinophils % 0.0 % Basophils % 0.2 % Neutrophils # 8.3 (1.6-8.9) K/mcL Lymphocytes # 0.3 L (0.6-4.6) K/mcL Monocytes # 0.5 (0.0-1.3) K/mcL Eosinophils # 0.0 (0.0-0.6) K/mcL Basophils # 0.0 (0.0-0.2) K/mcL Sodium 142 (136-145) mEq/L Potassium 5.1 (3.5-5.1) mEq/L Chloride 104 (98-107) mEq/L Carbon Dioxide 25 (23-29) mEq/L BUN 22 (8-23) mg/dL Creatinine 1.15 (0.70-1.30) mg/dL Est GFR ( Amer) > 60 (> 60) Est GFR (Non-Af Amer) > 60 (> 60) BUN/Creatinine Ratio 19 (6-26) Glucose 137 H (70-105) mg/dL Calculated Osmolality 299 (280-300) Calcium 9.8 (8.6-10.3) mg/dL Attestation Statement - Attestation Attestation: I, Donny Rahman MD, personally evaluated this patient and discussed their management with the resident physician. I reviewed the resident's note and agree with the documented findings, medical decision making, and plan of care. 82-year-old male with history of esophageal cancer presents to the emergency department complaining of inability to swallow liquids which started about 24 hours prior to arrival. This is a chronic recurrent problem and patient requires endoscopy and dilatation about every 6 months. He does complain of some pain across the mid and upper back which is typical when he has these problems. Unable to swallow his medications. Unable to swallow his saliva. On examination patient is a well-developed thin elderly male in no acute distress. He is alert and oriented 3. There is no cyanosis or diaphoresis. Breath sounds are decreased but clear and equal bilaterally. Heart regular rate and rhythm. Abdomen is soft and nontender with normal bowel sounds. Patient discussed with the surgeon cloth sponger, Dr. Pizano. She recommends admission by the hospitalist and consult Dr. Rosas in the morning. The hospitalist, Dr. Lazo, was consulted and accepted admission of the patient.
[2017-12-23] MEDS ORDERED: *HR* FentaNYL (PF) 100 MCG/2 ML VIAL IVP ONE (23:16)
[2017-12-23] MEDS ORDERED: D5% in Lactated Ringers 1,000 ML IVC SCH (23:45)
[2017-12-23] MEDS ORDERED: Ondansetron 4 MG/2 ML VIAL IVP PRN (23:49)
--- NOTE | 2017-12-24 00:34 | Internal Med History&Physical ---
Date of Encounter: 12/23/17 Time of Encounter: 23:30 Internal Medicine - H&P: HPI Chief complaint: Difficulty swallowing Admitted From: Home Plans for Post Hospital Care: Home History of present illness: Mr. 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 He presents now today complaining of difficulty swallowing over the past week with an inability to keep down both liquids and solids by mouth and now has to regurgitate all his saliva. He denies any fever, chills or chest pain with this but states that he has chronic back pain from kyphoscoliosis. In the ER he was seen clinically and hemodynamically stable and the surgery team was consulted and he will be admitted for evaluation in the morning. My assessment he was not in acute distress and reported feeling well other than his difficulty swallowing and keeping a bag at his side to spit in. Past Med Surg Social Fam HX - Past Medical History Medical history: cancer, kidney stones, pulmonary embolus Additional medical history: esophageal Psychiatric history: no psych history - Past Surgical History Surgical History: cancer surgery, cholecystectomy, other Additional surgical history: tonsillectomy, adenoidectomy - Social History Smoking Status: Never smoker Smokeless Tobacco Status: No Alcohol use: rarely Drug use: none - Family History Brother Living Status: Internal Medicine - H&P: Meds No Known Home Drugs 08/01/15 [History] 3 Allergy/AdvReac Type Severity Reaction Status Date / Time No Known Allergies Allergy Verified 07/10/17 13:03 All Systems PM: A 10-system review of systems was performed and is negative for pertinent findings except as documented above in the HPI. - Constitutional Vitals: Temp Pulse Resp BP Pulse Ox 98.1 F 61 20 154/95 95 12/23/17 23:57 12/23/17 23:57 12/23/17 23:57 12/23/17 23:57 12/23/17 23:57 Exam: Vitals: Reviewed General: Cachectic appearing white male sitting up in bed Skin: Pale and dry HEENT: Dry mucous membranes. Positive conjunctivae pallor. Neck: No lymphadenopathy. No JVD. No carotid bruits. No palpable thyroid. Chest: Diminished thoracic expansion. No wheezes, rales or rhonchi Heart: Normal S1 & S2; rhythmic. No rubs or murmurs. Abdomen: Excavated and non-tender to palpation. No peritoneal reaction. Extremities: Distal acrocyanosis is present but warm and non-edematous. Normal distal pulses. Neurological: Awake, alert and oriented to person, place and time. No focal deficits. Psych: Affect appropriate. Internal Med - H&P Results - Labs CBC & Chem 7: 12/23/17 21:50 12/23/17 21:50 - Assessment and plan (1) Dysphagia Current Visit: Yes Status: Acute Assessment and plan: Likely due to restenosis and will require another endoscopy and possible dilatation procedure. Keep NPO for now, anti-emetics prn and IV D5LR for maintenance. Surgery consult requested. Qualifiers: Dysphagia type: pharyngoesophageal phase Qualified Code(s): R13.14 - Dysphagia, pharyngoesophageal phase (2) History of esophageal cancer Current Visit: Yes Status: Acute Assessment and plan: No evidence thus far of metastatic or recurrent disease since surgery. He denies a history of etoh and smoking. Ongoing follow up by primary and general surgery. (3) Anemia in chronic illness Current Visit: Yes Status: Chronic Assessment and plan: Stable and without signs of acute blood loss. (4) DVT prophylaxis Current Visit: Yes Status: Acute Assessment and plan: SubQ heparin. - Time Spent With Patient Total time spent is greater than 50% in coordination of care (as documented) at patient's floor/unit and/or counseling patient: Greater than 35 minutes
[2017-12-24] MEDS ORDERED: Ketorolac 15 MG/ML VIAL IVP ONE (01:16)
[2017-12-24 01:59] LABS: INR 1.1; Prothrombin Time 12.7 Seconds (9.4-12.1)
[2017-12-24 02:02] LABS: Activated Partial Thrombo Time 28.9 Seconds (26.0-36.0)
[2017-12-24] MEDS: *HR* Heparin 5,000 UNIT/ML VIAL SQ SCH ×3 (05:50→21:03)
[2017-12-24] MEDS ORDERED: Isovue-370 500 ML INFUS..BTL IV ONE (07:39)
[2017-12-24] MEDS ORDERED: *HR* FentaNYL (PF) 100 MCG/2 ML VIAL ONE (08:46)
[2017-12-24] MEDS ORDERED: *HR* Midazolam HCl 5 MG/5 ML VIAL IVP ONE ×2 (08:46→09:09)
--- NOTE | 2017-12-24 08:47 | General Surgery Consult Note ---
<Dio Donohue R - Last Filed: 12/24/17 08:23> Date of Encounter: 12/24/17 Time of Encounter: 07:15 Assessment and Plan (1) Dysphagia Current Visit: Yes Status: Acute Patient was evaluated at the bedside, is in no acute distress, is witnessed unable to swallow salivary secretions. Plan: IV fluids Will obtain CT chest with oral and IV contrast Plan for EGD today. Discussed procedure, as well as risks and benefits with the patient, he would like to proceed. prn antiemetic Comfort care and pain management NPO Qualifiers: Dysphagia type: pharyngoesophageal phase Qualified Code(s): R13.14 - Dysphagia, pharyngoesophageal phase (2) DVT prophylaxis Current Visit: Yes Status: Acute Heparin EPCD's Ambulation TID History of Present Illness Consult date: 12/23/17 (Dr. Rosas) Reason for consult: other (Dysphagia) Requesting physician: Jaswant Lazar History of present illness: Mr. Munoz is an 82 year old male with a history of esophageal cancer and transhiatal esophagectomy 6 years ago. Patient is well know to [facility], he last underwent EGD with Dr. Rosas in June 2017 for dilation of multiple levels. Per patient this much be done once or twice per year. Patient states that he developed worsening difficulty swallowing of the past week. Dysphagia for both solids and liquids, now has difficulty with own salivary secretions and must spit into a cup. Denies chest pain, difficulty breathing, or dyspnea. Denies nausea, vomiting, fever. He does complain of mid/ upper back pain, which is typical of this problem for him. Past Med Surg Social Fam HX - Past Medical History Medical history: cancer, kidney stones, pulmonary embolus Additional medical history: esophageal Psychiatric history: no psych history - Past Surgical History Surgical History: cancer surgery, cholecystectomy, other Additional surgical history: tonsillectomy, adenoidectomy - Social History Smoking Status: Never smoker Smokeless Tobacco Status: No Alcohol use: rarely Drug use: none - Family History Brother Living Status: Medications and Allergies No Known Home Drugs 08/01/15 [History] 3 Allergy/AdvReac Type Severity Reaction Status Date / Time No Known Allergies Allergy Verified 07/10/17 13:03 Review of Systems All systems PM: The remainder of the systems were reviewed and are negative - Constitutional no chills, no fever(s) - Cardiovascular no chest pain, no dyspnea - Respiratory no cough, no dyspnea, no wheezing - Gastrointestinal dysphagia, no abdominal pain, no change in bowel habits, no hematochezia, no nausea, no vomiting General Surgery Exam Initial Vital Signs Temp Pulse Resp BP Pulse Ox 97.9 F 84 26 122/83 100 12/23/17 20:43 12/23/17 20:43 12/23/17 20:43 12/23/17 20:43 12/23/17 20:43 - General physical appearance well developed, no distress (No visible distress, is spitting saliva into cup for comfort), no pain - Eyes PERRL, normal ocular movement - ENT dry mucosa, atraumatic, normocephalic - Neck no masses, trachea midline - Respiratory normal expansion, normal respiratory effort, clear to auscultation - Cardiovascular Cardiovascular exam: Present: RRR - Abdomen Abdomen general surgery: Present: bowel sounds present, soft, non tender. Absent: guarding, rebound - Integumentary Integumentary general surgery: Present: warm and dry - Neurologic Present: CN 2-12 grossly intact - Psychiatric Psychiatric general surgery: Present: A&Ox3, speech is normal, memory intact Exam Initial Vital Signs Temp Pulse Resp BP Pulse Ox 97.9 F 84 26 122/83 100 12/23/17 20:43 12/23/17 20:43 12/23/17 20:43 12/23/17 20:43 12/23/17 20:43 Results - Labs 12/23/17 21:50 12/23/17 21:50 Abnormal lab results MPV 8.6 fL (9.4-12.4) L 12/23/17 21:50 Lymphocytes # 0.3 K/mcL (0.6-4.6) L 12/23/17 21:50 PT 12.7 Seconds (9.4-12.1) H 12/24/17 01:23 Glucose 137 mg/dL (70-105) H 12/23/17 21:50 All other labs normal. Consult Discharge Plan - Plan Referrals: Glenn Riley DO [Primary Care Provider] - <Jesus Rosas - Last Filed: 12/24/17 16:50> Date of Encounter: 12/24/17 Review of Systems All systems PM: The remainder of the systems were reviewed and are negative General Surgery Exam Initial Vital Signs Temp Pulse Resp BP Pulse Ox 97.9 F 84 26 122/83 100 12/23/17 20:43 12/23/17 20:43 12/23/17 20:43 12/23/17 20:43 12/23/17 20:43 Exam Initial Vital Signs Temp Pulse Resp BP Pulse Ox 97.9 F 84 26 122/83 100 12/23/17 20:43 12/23/17 20:43 12/23/17 20:43 12/23/17 20:43 12/23/17 20:43 Results - Labs 12/23/17 21:50 12/23/17 21:50 Abnormal lab results MPV 8.6 fL (9.4-12.4) L 12/23/17 21:50 Lymphocytes # 0.3 K/mcL (0.6-4.6) L 12/23/17 21:50 PT 12.7 Seconds (9.4-12.1) H 12/24/17 01:23 Glucose 137 mg/dL (70-105) H 12/23/17 21:50 All other labs normal. - Attending Attestation I examined this patient and my medical decision-making was reviewed with the Resident Physician. I agree with the documented findings, disposition and treatment plan as described except to the extent set forth below. The patient is seen and evaluated with rest and on morning rounds. He is 6 year survivor from transhiatal esophagectomy for esophageal cancer. He has recurrent dysphagia. We will go for endoscopy later today in an attempt to dilate the proximal anastomosis and evaluate the ada-esophagus. He will also require CAT scan of the chest rule out recurrent disease. bEer Rosas MD FACS
[2017-12-24] MEDS ORDERED: *HR* FentaNYL (PF) 100 MCG/2 ML VIAL IVP ONE (09:09)
[2017-12-24] MEDS ORDERED: Tetracaine/Benzocaine/Butamben 200MG/SPRAY (100SPY/BOT) MM ONE (09:09)
[2017-12-24] MEDS ORDERED: Simethicone 40 MG/0.6 ML MLS IR ONE (09:09)
--- NOTE | 2017-12-24 09:11 | Pre-Sedation Evaluation ---
Pre-sedation evaluation - Pre-sedation checklist Date of procedure: 12/24/17 Procedure: egd Recent Vitals: Last Vital Signs Temp 97.9 F 12/24/17 09:04 Pulse 62 12/24/17 09:04 Resp 16 12/24/17 09:04 BP 141/78 12/24/17 09:04 Pulse Ox 99 12/24/17 09:04 H&P (including ROS) documented in medical record: Yes Previous reaction to sedatives/anesthetics: No Dietary Status: NPO after Midnight Airway Assessment: Patient can open mouth completely, TMJ function normal Dentition: No loose teeth or bridges Possible difficult airway: No ASA Classification *see protocol: CLASS III-Severe systemic disease Plan of Care: Pt appropriate candidate for procedure/moderate/conscious sedation , Risks/benefits of procedure/sedation discussed w/ patient/family Cardiac Registry (Cardio Only) - Functional Capacity - Clincal Frailty Scale
--- NOTE | 2017-12-24 16:24 | Internal Med Progress Note ---
Hospitalist Progress Note - Encounter Date of Encounter: 12/24/17 Time of Encounter: 10:45 - Subjective Interval History: pt just back from egd. Nursing at bedside. Pt somnolent post procedure but opens eyes to name. Denies pain. Quickly back to sleep. comfortable appearing. Snoring. No further HPI or ROS can be obtained due to pt somnolence post procedure with sedating meds given. No family at bedside - Exam Vitals: Temp Pulse Resp BP Pulse Ox 97.5 F L 63 16 124/67 100 12/24/17 16:18 12/24/17 16:18 12/24/17 16:18 12/24/17 16:18 12/24/17 16:18 Exam: General: aasleep, snoring, appears stated age HEENT: pupils equal, round, dry mucus membranes Neck: supple, trachea midline Cardiovascular:regular rate and rhythm, normal S1 & S2, + SM. No JVD. radial pulses 2+, no lower extremity edema Lungs:Normal breath sounds, no wheezes, or crackles. Normal respiratory effort Abdomen:Soft, no apparent tenderness to palpation, non-distended, no rigidity, + bowel sounds Neurological: somnolent post EGD, awake to name, quickly back to sleep Skin:Normal color, no rash, no pallor, no jaundice - Assessment and Plan (1) Dysphagia Current Visit: Yes Status: Acute Assessment and Plan: History of Esophgeal stenosis -surgery following -CT chest obtained and showed food impaction and small pneumomediastinum -for EGD 12/24 with verbal report from nursing of food impaction and esophageal dilation preformed, surg procedure note pendinga nd will fu -verbal report by RN of full liquid diet -will fu surgery recs (2) History of esophageal cancer Current Visit: Yes Status: Acute Assessment and Plan: No evidence thus far of metastatic or recurrent disease since surgery. He denies a history of etoh and smoking. Ongoing follow up by primary and general surgery. (3) Anemia in chronic illness Current Visit: Yes Status: Chronic Assessment and Plan: Stable and without signs of acute blood loss. Hgb on admit is normal 14.1 (4) DVT prophylaxis Current Visit: Yes Status: Acute Assessment and Plan: SubQ heparin. - Time Spent with Patient Total time spent is greater than 50% in coordination of care (as documented) at patient's floor/unit and/or counseling patient: 25 - 35 minutes Internal Medicine: Result - Labs CBC & Chem 7: 12/23/17 21:50 12/23/17 21:50 - ABG Interpretation ABG results: PT/INR, D-dimer PT 12.7 Seconds (9.4-12.1) H 12/24/17 01:23 - Impressions Impressions Chest CT 12/24/17 07:39 IMPRESSION: Dilatation of the lower cervical and upper thoracic esophagus with intraluminal heterogeneous content, suggestive of food impaction. A small amount of pneumomediastinum is also seen, for which perforation cannot be excluded. Chronic appearing pulmonary embolism within the left pulmonary artery. 4 cm left basilar pulmonary nodule is not significantly changed from prior, for which continued follow-up is recommended. Findings were called the radiology call center. D/ / Tramaine Hurley MD / Tramaine Hurley MD Interpreting Provider: Tramaine Hurley MD Consult Discharge Plan - Plan Referrals: Glenn Riley DO [Primary Care Provider] - (1) Dysphagia Qualifiers: Dysphagia type: pharyngoesophageal phase Qualified Code(s): R13.14 - Dysphagia, pharyngoesophageal phase
[2017-12-25] MEDS: *HR* Heparin 5,000 UNIT/ML VIAL SQ SCH (05:34)
[2017-12-25 06:48] VITALS: BP 122/62
--- NOTE | 2017-12-25 10:17 | Discharge Summary ---
- NOTES TO OUTPATIENT PROVIDER Notes to Outpatient Provider: follow up with Dr Rosas in one week. Discharged on full liquid/pureed diet Date of Encounter: 12/25/17 Time of Encounter: 10:26 - Discharge Diagnosis (1) Dysphagia Priority: Primary Status: Resolved Assessment and Plan: History of Esophgeal stenosis and Esophageal cancer -surgery followed- Dr Rosas -CT chest obtained and showed food impaction and small pneumomediastinum , reviewed by surgery -EGD 12/24 with verbal report of food impaction and esophageal dilation preformed , surg procedure note pending at time of dc -per Dr Rosas cleared for dc to home with full liquid to pureed diet until seen in follow up -pt tolerating diet without any issues at time of dc Qualifiers: Dysphagia type: pharyngoesophageal phase Qualified Code(s): R13.14 - Dysphagia, pharyngoesophageal phase (2) History of esophageal cancer Priority: Secondary Status: Chronic Assessment and Plan: No evidence thus far of metastatic or recurrent disease since surgery. He denies a history of etoh and smoking. Ongoing follow up by primary and general surgery. (3) Anemia in chronic illness Priority: Secondary Status: Chronic Assessment and Plan: Stable and without signs of acute blood loss. Hgb on admit is normal 14.1 (4) DVT prophylaxis Priority: Secondary Status: Acute Assessment and Plan: SubQ heparin while inpt. Hospital course: Mr. Munoz is a 82 year old male who has hx of esophageal cancer and esophageal stenosis whom follows with Dr Rosas. He had difficulty swallowing any foods or liquids, and was having difficulty swallowing his oral secretions at time of admission. He was seen by Dr Rosas. CT scan showed food in esophagus , chronic changes post esophageal cancer surgery and small pneumomediastinum. This was reviewed by surgery whom recommended EGD. EGD 12/24 revealed food bolus impaction. Diet was advanced by surgery to full liquids/pureed. Pt tolerated without any difficulty and returned to his baseline status. Cleared verbally by Dr Rosas for dc to home with outpt follow up. Discharge discussed with: patient - Time Spent with Patient Total time spent providing and/or coordinating discharge services: Less than 30 minutes - Discharge Medications Home Medications: No Known Home Drugs 08/01/15 [History] Allergies/Adverse Reactions: 3 Allergy/AdvReac Type Severity Reaction Status Date / Time No Known Allergies Allergy Verified 07/10/17 13:03 Date of admission: 12/23/17 22:42 Primary care physician: Thiago Riley DO Consults: Dr Rosas- surgery Discharging clinician: Yamilka Carrasco - Constitutional Vitals: Temp Pulse Resp BP Pulse Ox 98.4 F 57 16 122/62 98 12/25/17 06:43 12/25/17 06:43 12/25/17 06:43 12/25/17 06:43 12/25/17 06:43 Exam: General: awake, nad, appears stated age HEENT: pupils equal, round, moist mucus membranes Neck: supple, trachea midline Cardiovascular:regular rate and rhythm, normal S1 & S2, + SM. Lungs:Normal breath sounds, no wheezes, or crackles. Normal respiratory effort Abdomen:Soft, no tenderness to palpation, non-distended, no rigidity, + bowel sounds Neurological: AAOx3, CN grossly intact Skin:Normal color, no rash, no pallor, no jaundice - Patient Status Disposition: Home, Self-Care Condition: Good Functional capacity at discharge: independent ambulation Overall status at discharge: patient is back to baseline - Discharge Instructions Follow Up With: Glenn Riley DO [Primary Care Provider] - Jesus Rosas MD [Partnered Physician] - Additional Instructions: Full liquid diet or pureed diet until seen by Dr Rosas in follow up - Diet and Activity Activity: resume usual activities as tolerated Diet: other (full liquid or pureed diet until Dr Rosas makes changes)
--- NOTE | 2017-12-25 10:40 | General Surgery Progress Note ---
<CharanjitJorgeDio R - Last Filed: 12/25/17 10:38> Date of Encounter: 12/25/17 Time of Encounter: 07:20 - Assessment and Plan (1) Dysphagia Status: Resolved Patient reports being back to near baseline. No difficulty with clear liquid diet yesterday. Plan: We will advance to full liquid diet today. If he tolerates this without difficulty okay to discharge from surgical point of view. He will continue full liquid and pureed diet after discharge. With four-week follow-up with Dr. Rosas in outpatient appointment on 01/21/2018 at 10:10 AM (2) DVT prophylaxis Status: Acute Subjective Patient reports: no new complaints, pain is less, voiding w/o difficulty, flatus , bowel movement, afebrile Narrative: Patient reports significant relief since EGD and dilation yesterday. Reports mild nausea but no associated vomiting. Denies fever, change in bowel habits. Reports postprocedure pain is well controlled. Tolerating liquid diet well yesterday will advance to full liquid today. Objective Vital Signs - Last 8 Hours Temp Pulse Resp BP Pulse Ox 12/25/17 06:43 98.4 F 57 16 122/62 98 12/25/17 04:30 98.6 F 63 16 133/70 98 Intake and Output 12/24/17 12/25/17 12/25/17 23:59 07:59 15:59 Intake Total 240 / 240 600 / 600 Balance 240 / 240 600 / 600 Intake: Oral 240 / 240 600 / 600 Other: Meal Dinner Breakfast Percent of Meal Consumed 100% 90% # Voids 1 Weight 57.2 kg Patient Weight 12/25/17 23:59 Weight 57.2 kg - General physical appearance no distress, no pain - Eyes PERRL, normal ocular movement - ENT normal mucosa, atraumatic, normocephalic - Neck Neck exam: trachea midline - Respiratory normal expansion, clear to auscultation - Cardiovascular Cardiovascular exam: Present: RRR - Abdomen Abdomen: Present: bowel sounds present, soft, non tender - Integumentary no rash - Neurologic CN 2-12 grossly intact - Musculoskeletal normal posture - Psychiatric oriented to time, oriented to person, oriented to place, speech is normal - Labs 12/23/17 21:50 12/23/17 21:50 Consult Discharge Plan - Plan Additional Instructions: Full liquid diet or pureed diet until seen by Dr Rosas in follow up Referrals: Glenn Riley DO [Primary Care Provider] - Jesus Rosas MD [Partnered Physician] - 01/21/18 10:10 am <Jesus Rosas - Last Filed: 12/26/17 08:56> Date of Encounter: 12/25/17 Objective - Labs 12/23/17 21:50 12/23/17 21:50 - Attending Attestation I examined this patient and my medical decision-making was reviewed with the Resident Physician. I agree with the documented findings, disposition and treatment plan as described except to the extent set forth below. The patient is seen and evaluated on morning rounds with resident. He responded very well to disimpaction of esophageal food bolus as well as dilatation of his proximal esophageal stenosis. He may be discharged on full liquids. Jesus Rosas MD FACS
== END 2017-12-25 11:27 | disposition home or self-care (01) ==
LOC: 3NENU 20:30 → EMEROOARM 20:30 → SUATTDRO 22:42 → 3NENU 23:24
PROVIDERS: ADMIT Internal Medicine; ATTEND Internal Medicine
PROC: ENDOORB (2017-12-24 09:00)

== ENCOUNTER 2018-09-12 14:52 | Inpatient (IN) ==
[2018-09-12 15:49] LABS: Basophils % 0.2 %; Eosinophils % 0.1 %; Hematocrit 40.8 % (37.5-50.1); Hemoglobin 13.2 g/dL (12.9-16.9); Immature Granulocytes % 0.3 % (0-4); Lymphocytes # 0.5 K/mcL (0.6-4.6); Lymphocytes % 4.6 %; Mean Corpuscular HGB Conc 32.4 g/dL (31.6-35.5); Mean Corpuscular Hemoglobin 32.6 pg (28.0-33.3); Mean Corpuscular Volume 100.7 fL (83.0-100.0); Mean Platelet Volume 8.7 fL (9.4-12.4); Monocytes # 0.6 K/mcL (0.0-1.3); Monocytes % 6.3 %; Neutrophils # 8.7 K/mcL (1.6-8.9); Platelet Count 238 K/mcL (140-400); Red Blood Count 4.05 M/mcL (4.19-5.50); Red Cell Distribution Width 13.4 % (11.5-14.5); Segmented Neutrophils % 88.5 %
--- NOTE | 2018-09-12 15:58 | Emergency Department Note ---
Disposition Clinical Impression: Chest pain Qualifiers: Chest pain type: unspecified Qualified Code(s): R07.9 - Chest pain, unspecified Pulmonary embolism Qualifiers: Pulmonary embolism type: unspecified Chronicity: acute Acute cor pulmonale presence: without acute cor pulmonale Qualified Code(s): I26.99 - Other pulmonary embolism without acute cor pulmonale Disposition: Admitted As Inpatient Condition: Undetermined Time of Disposition: 19:42 Chest Pain HPI - General Chief Complaint: ED Chest Pain Stated Complaint: NECK PAIN/CP Time Seen by Provider: 09/12/18 15:18 Source: patient Mode of arrival: ambulatory Limitations: no limitations Vital Signs Reviewed: Yes Nursing Notes Reviewed: Yes - History of Present Illness HPI Narrative: 82-year-old male with history of esophageal cancer, history of cholecystectomy and appendectomy arrives to the emergency department with complaint of what started as right upper quadrant epigastric pain roughly 2 months ago that is progressively migrated to the right side of his neck. Patient has no associated symptoms with it. Patient is a fairly poor historian and unable to really give much history. Family member that is in the room is laughing at the fact that the patient is such a poor historian and unable to truly give us any information about when symptoms occurred. The patient denies any other complaints at this time but does have some tenderness to his abdomen, right sided chest wall the right side of his neck. He denies any other complaints at this time. Severity scale (1-10): 10 - Related Data Home Medications Medication Instructions Recorded Confirmed Tramadol HCl [Ultram] 50 mg PO Q6H PRN 06/12/18 06/21/18 Previous Rx's Medication Instructions Recorded Acetaminophen [Tylenol] 500 mg PO Q6HR PRN #20 tablet 06/21/18 Mupirocin [Bactroban Oint] 22 appl TP BID #1 tube 06/21/18 predniSONE [PredniSONE] 20 mg PO BID #10 tablet 06/21/18 Allergies Allergy/AdvReac Type Severity Reaction Status Date / Time No Known Allergies Allergy Verified 06/21/18 12:26 All systems ED: reviewed and negative except as stated. Constitutional: Denies: fever, chills, weakness Eyes: Denies: vision change ENT ED: Denies: dysphagia Cardiovascular: Reports: chest pain. Denies: dyspnea on exertion, edema, syncope Respiratory: Denies: cough, dyspnea, sputum production Gastrointestinal: Reports: abdominal pain. Denies: nausea, vomiting, diarrhea, constipation, hematemesis, melena, hematochezia Genitourinary: Denies: urgency, dysuria Musculoskeletal: Reports: neck pain. Denies: back pain, arthralgia Integumentary: Denies: rash Neurological: Denies: headache, weakness, numbness, paresthesias Chest Pain PMH - Past Medical History Medical history: Reports: cancer, kidney stones, pulmonary embolus, other Surgical history: Reports: appendectomy, cancer surgery, cholecystectomy, other Psychiatric history: Reports: no psych history - Social History Smoking Status: Never smoker Alcohol use: Reports: none Drug use: Reports: none Physical Exam - General Limitations: no limitations General appearance: alert, in no apparent distress - Head Head exam: atraumatic, normocephalic, normal inspection - Eye Eye exam: Present: normal appearance, PERRL, EOMI - ENT ENT exam: normal exam, normal oropharynx, mucous membranes moist - Neck Neck exam: Present: normal inspection, full ROM, trachea midline - Chest Chest inspection: Present: normal inspection, symmetric chest wall rise - Respiratory Respiratory exam: Present: normal lung sounds bilaterally - Cardiovascular Cardiovascular exam: Present: regular rate, normal rhythm, normal heart sounds - Abdominal Exam Abdominal exam: Present: soft, Non-Tender. Absent: tenderness, distention, guarding, rebound, rigidity - Extremities Exam Extremities exam: Present: normal inspection, full ROM, normal capillary refill. Absent: tenderness, pedal edema - Neurological Exam Neurological exam: Present: alert, oriented X3 - Skin Skin exam: Present: warm, dry, intact, normal color Course - Reevaluation(s) Reevaluation #1: Patient noted to have an intussusception in the enteroenteric region of the left lower quadrant. I called Dr. Rosas and on-call surgery and he will see the patient at bedside. Analgesic ordered at this time. Time: 16:24 Reevaluation #2: General surgery, Dr. Rosas saw the patient in consultation. He stated this intussusception that he is seeing on CT scan is associated with where the patient previously had a J-tube. He did not feel as though this was the patient's source of pain or is a true intussusception. Time: 17:16 Vital Signs Temperature 98.3 F 09/12/18 15:06 Pulse Rate 71 09/12/18 15:06 Respiratory Rate 18 09/12/18 15:06 Blood Pressure 133/83 09/12/18 15:06 O2 Sat by Pulse Oximetry 100 09/12/18 15:06 Temperature 98.3 F 09/12/18 15:06 Pulse Rate 71 09/12/18 15:06 Respiratory Rate 18 09/12/18 15:06 Blood Pressure 133/83 09/12/18 15:06 O2 Sat by Pulse Oximetry 100 09/12/18 15:06 Oxygen Delivery Oxygen Delivery Room Air Chest Pain - MDM Narrative Medical decision making narrative: Patient's workup in the emergency department demonstrates a thrombosis of the left pulmonary artery. It is stated that is chronic and unchanged from previous examination with the patient is on no anti-correlation and has never been on any anticoagulation. Given the patient's significant chest discomfort and abdominal pain combined with his symptoms and findings on CTA of the patient's chest, we will admit the patient at this time. We will start the patient heparin drip. The patient has had no melena or hematochezia. In addition the patient's intussusception that was noted on CT scan of the abdomen pelvis was apparently a postsurgical and chronic according to Dr. Rosas in general surgery who evaluated the patient at bedside. Patient is resting comfortably in the room at this time and we will admit the patient to the hospital for further workup and care. Patient made aware and agrees to plan. No further questions or concerns noted at this time. patient accepted by Dr. Talbot. - Lab Data Lab results reviewed: Yes I reviewed the patient's lab results. Result diagrams: 09/12/18 19:28 09/12/18 15:21 Lab Results 09/12/18 09/12/18 09/12/18 Range/Units 15:17 15:21 15:21 WBC 9.8 (4.3-11.1) K/mcL RBC 4.05 L (4.19-5.50) M/mcL Hgb 13.2 (12.9-16.9) g/dL Hct 40.8 (37.5-50.1) % MCV 100.7 H (83.0-100.0) fL MCH 32.6 (28.0-33.3) pg MCHC 32.4 (31.6-35.5) g/dL RDW 13.4 (11.5-14.5) % Plt Count 238 (140-400) K/mcL MPV 8.7 L (9.4-12.4) fL Immature Gran % 0.3 (0-4) % Seg Neutrophils % 88.5 % Lymphocytes % 4.6 % Monocytes % 6.3 % Eosinophils % 0.1 % Basophils % 0.2 % Neutrophils # 8.7 (1.6-8.9) K/mcL Lymphocytes # 0.5 L (0.6-4.6) K/mcL Monocytes # 0.6 (0.0-1.3) K/mcL Eosinophils # 0.0 (0.0-0.6) K/mcL Basophils # 0.0 (0.0-0.2) K/mcL PT 11.7 (9.4-12.1) Seconds INR 1.0 APTT 32.8 (26.0-36.0) Seconds D-Dimer 1718 H (0-500) ng/mLFEU Sodium (136-145) mEq/L Potassium (3.5-5.1) mEq/L Chloride (98-107) mEq/L Carbon Dioxide (23-29) mEq/L BUN (8-23) mg/dL Creatinine (0.70-1.30) mg/dL Est GFR ( Amer) (> 60) Est GFR (Non-Af Amer) (> 60) BUN/Creatinine Ratio (6-26) Glucose (70-105) mg/dL Calculated Osmolality (280-300) Calcium (8.6-10.3) mg/dL Total Bilirubin 1.2 H (0.3-1.0) mg/dL Direct Bilirubin 0.2 (0.0-0.2) mg/dL Indirect Bilirubin 1.0 (0.0-1.2) mg/dL AST 17 (13-39) Units/L ALT 15 (7-52) Units/L Alkaline Phosphatase 76 (34-104) Units/L Troponin I (< 0.04) ng/mL Serum Total Protein 7.0 (6.4-8.9) g/dL Albumin 4.0 (3.5-5.7) g/dL Globulin 3.0 (2.4-3.5) g/dL Albumin/Globulin Ratio 1.3 (1.1-2.2) Lipase 18 (11-82) Units/L 09/12/ Range/Units 15:21 WBC (4.3-11.1) K/mcL RBC (4.19-5.50) M/mcL Hgb (12.9-16.9) g/dL Hct (37.5-50.1) % MCV (83.0-100.0) fL MCH (28.0-33.3) pg MCHC (31.6-35.5) g/dL RDW (11.5-14.5) % Plt Count (140-400) K/mcL MPV (9.4-12.4) fL Immature Gran % (0-4) % Seg Neutrophils % % Lymphocytes % % Monocytes % % Eosinophils % % Basophils % % Neutrophils # (1.6-8.9) K/mcL Lymphocytes # (0.6-4.6) K/mcL Monocytes # (0.0-1.3) K/mcL Eosinophils # (0.0-0.6) K/mcL Basophils # (0.0-0.2) K/mcL PT (9.4-12.1) Seconds INR APTT (26.0-36.0) Seconds D-Dimer (0-500) ng/mLFEU Sodium 139 (136-145) mEq/L Potassium 4.2 (3.5-5.1) mEq/L Chloride 104 (98-107) mEq/L Carbon Dioxide 29 (23-29) mEq/L BUN 20 (8-23) mg/dL Creatinine 1.00 (0.70-1.30) mg/dL Est GFR ( Amer) > 60 (> 60) Est GFR (Non-Af Amer) > 60 (> 60) BUN/Creatinine Ratio 20 (6-26) Glucose 102 (70-105) mg/dL Calculated Osmolality 291 (280-300) Calcium 9.5 (8.6-10.3) mg/dL Total Bilirubin (0.3-1.0) mg/dL Direct Bilirubin (0.0-0.2) mg/dL Indirect Bilirubin (0.0-1.2) mg/dL AST (13-39) Units/L ALT (7-52) Units/L Alkaline Phosphatase (34-104) Units/L Troponin I < 0.03 (< 0.04) ng/mL Serum Total Protein (6.4-8.9) g/dL Albumin (3.5-5.7) g/dL Globulin (2.4-3.5) g/dL Albumin/Globulin Ratio (1.1-2.2) Lipase (11-82) Units/L - Radiology Data Radiology results reviewed: Yes I reviewed the patient's radiology results. Chest X-Ray 09/12/18 15:10 IMPRESSION: 1. Stable postsurgical change and evidence of asbestos related pleural disease. 2. No acute abnormality. D/ / 09/12/2018 15:46:56 Maximilian Chung MD / danilo Interpreting Provider: Maximilian Chung MD Abdomen/Pelvis CT 09/12/18 15:19 IMPRESSION: 1. Short segment enteroenteric intussusception in the left lower quadrant with no obstruction. This may be a transient incidental finding, however a lead point mass is not excluded 2. Bilateral nephrolithiasis 3. Prostatic enlargement 4. Chronic changes in the lower chest D/ / Ethan Vitale MD / Ethan Vitale MD Interpreting Provider: Ethan Vitale MD Chest CTA 09/12/18 16:26 IMPRESSION: No evidence of acute process in the chest. Unchanged chronic embolism versus thrombosis of the left distal main pulmonary artery into the left lower lobe. D/ / Nathanael Hogan MD / Nathanael Hogan MD Interpreting Provider: Nathanael Hogan MD - EKG Data EKG attestation: Yes I reviewed and interpreted this EKG. EKG results narrative: Heart rate 72 beats for minute. Normal sinus rhythm. No ST elevation or ST depression noted. No acute changes noted. Attestation Statement - Attestation Attestation: Resident Attestation: I examined this patient and my medical decision making was reviewed with the Resident Physician. I agree with the documented findings, disposition and treatment plan as described except to the extent set forth below. We independently had [id number] contact with the patient. EKG reviewed with resident physician and agree with documentation. Patient presented for evaluation of right-sided chest pain. Patient states overall symptoms have typically been in his belly but is now rating up to the right shoulder. The patient is nondescript in his overall symptoms. Patient states that he has been having symptoms for the last couple of years in regards to his abdomen. Is followed Dr. Rosas. Overall patient is having associated new right chest pain with radiation to the shoulder and will undergo further evaluation for underlying cause. Patient does not appear to be acute distress, patient is not dyspneic with increased worker breathing. Lung sounds are clear to auscultation bilaterally.
[2018-09-12 15:59] LABS: Prothrombin Time 11.7 Seconds (9.4-12.1)
[2018-09-12 16:01] LABS: Activated Partial Thrombo Time 32.8 Seconds (26.0-36.0)
[2018-09-12 16:09] LABS: Albumin/Globulin Ratio 1.3 (1.1-2.2); Bilirubin,Direct 0.2 mg/dL (0.0-0.2); Bilirubin,Total 1.2 mg/dL (0.3-1.0)
[2018-09-12 16:10] LABS: BUN/Creatinine Ratio 20 (6-26); Blood Urea Nitrogen 20 mg/dL (8-23); Calcium 9.5 mg/dL (8.6-10.3); Carbon Dioxide 29 mEq/L (23-29); Chloride 104 mEq/L (98-107); Glucose 102 mg/dL (70-105); Osmolality,Calculated 291 (280-300); Potassium 4.2 mEq/L (3.5-5.1); Sodium 139 mEq/L (136-145); eGFR For Non-African Americans > 60 (> 60)
[2018-09-12 16:11] LABS: Troponin I < 0.03 ng/mL (< 0.04)
[2018-09-12] MEDS ORDERED: *HR* HYDROmorphone (PF) 1 MG/ML SYRINGE IVP ONE (16:22)
[2018-09-12] MEDS ORDERED: 0.9 % Sodium Chloride 500 ML IVC ONE (16:26)
[2018-09-12] MEDS ORDERED: Isovue-370 500 ML BOTTLE IVP ONE (16:26)
[2018-09-12] MEDS ORDERED: Heparin 25,000 UNIT/250 ML D5W 25,000 UNIT/250 ML IV.SOLN IVC SCH (18:45)
[2018-09-12] MEDS ORDERED: *HR* Heparin 5,000 UNIT/ML VIAL IVP PRN ×2 (18:45)
[2018-09-12] MEDS ORDERED: *HR* Heparin 5,000 UNIT/ML VIAL IVP ONE (18:45)
[2018-09-12 19:54] LABS: Hematocrit 40.9 % (37.5-50.1); Hemoglobin 13.2 g/dL (12.9-16.9); Mean Corpuscular HGB Conc 32.3 g/dL (31.6-35.5); Mean Corpuscular Hemoglobin 32.1 pg (28.0-33.3); Mean Corpuscular Volume 99.5 fL (83.0-100.0); Mean Platelet Volume 8.8 fL (9.4-12.4); Platelet Count 234 K/mcL (140-400); Red Blood Count 4.11 M/mcL (4.19-5.50); Red Cell Distribution Width 13.3 % (11.5-14.5)
[2018-09-12 20:02] LABS: Heparin anti-factor XA UFH 0.01 IU/mL (0.30-0.70)
[2018-09-12 20:03] LABS: Prothrombin Time 11.6 Seconds (9.4-12.1)
[2018-09-12] MEDS ORDERED: Naloxone 0.4 MG/ML INJ IVP PRN (20:15)
[2018-09-12] MEDS ORDERED: traMADol 50 MG TABLET PO PRN (20:15)
[2018-09-12] MEDS ORDERED: Acetaminophen 325 MG TABLET PO PRN (20:15)
[2018-09-12] MEDS ORDERED: Ringers Solution, Lactated 1,000 ML IVC SCH (21:00)
--- NOTE | 2018-09-12 21:06 | Internal Med History&Physical ---
Date of Encounter: 09/12/18 Time of Encounter: 21:02 Internal Medicine - H&P: HPI Chief complaint: pain Plans for Post Hospital Care: Home History of present illness: Mr. 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 He presents to the ER complaining of pain in his right lower abdomen that has been present for months but over the last few days started feeling pain migrate up into his right chest and more recently his right neck which prompted him to seek medical attention. It should be noted that the patient is a very poor historian and seems to have dementia. It is reported that family members who were present in the ER reported that the veracity of the timeline he reports are questionable. He offers no other complaints at this time. Abdomen CT done in the ER showed concerns for short segment enteroenteric intussusception in the left lower quadrant with no obstruction. His surgeon Dr. Rosas was contacted who saw the patient and review the CAT scan stating that his this was not a true intussusception and that area localize was where he previously had a J-tube and was unlikely the source of his pain. Subsequently a chest CT was done which showed an unchanged chronic peripheral pulmonary embolism beginning in the distal left main pulmonary artery extending into a left lower lobe pulmonary artery posteromedial segment. He was then started on heparin drip in the ER. On review of prior records, this finding was seen on CT in December 2017. He was however started on heparin drip. Vitals: Reviewed General: Cachectic appearing white male sitting up in bed Skin: Pale and dry HEENT: Dry mucous membranes. Positive conjunctivae pallor. Neck: No lymphadenopathy. No JVD. No carotid bruits. No palpable thyroid. Chest: Diminished thoracic expansion. No wheezes, rales or rhonchi Heart: Normal S1 & S2; rhythmic. No rubs or murmurs. Abdomen: Excavated and non-tender to palpation. No peritoneal reaction. Extremities: Distal acrocyanosis is present but warm and non-edematous. Normal distal pulses. Neurological: Awake, alert and oriented to person, place and time. No focal deficits. Psych: Affect appropriate. Assessment/Plan 1. Abdominal/chest pain: Non-specific. Unable to find any acute processes that seem to be the cause. He reports chronic lower abdomen and back pain now going up into his right chest. LFTs are within normal limits. The questionable intussusception was seen on the left not the right. Even the chronic PE is on the left and not the right side and highly unlikely to be the cause of his symptoms. He does have an 8mm right renal stone although non-obstructing and this could play a role. He also has chronic pleural thickening with dense calcifications that could also factor in. For now the pain is non-specific. Will continue clinical observation, provide pain relief measures and evaluate further. 2. Chronic pulmonary embolism: Not a new finding. He is not tachypneic, hypoxic, tachycardic or having acute onset chest pain that correlates with the localization. This was seen on CT 9 months ago and without intervention. It seems to be stable not causing hemodynamic instability or even clinical symptoms. Will get an echo to evaluate for presence of pulmonary hypertension. Will discontinue the heparin drip started given his frail state, fall risk, reduced life expectancy and uncertainty that he can actually continue taking oral anticoagulants on his own at home without risks. He may benefit from pulmonary or hematology evaluation for further recommendations on this matter. 3. Dysphagia: Post-surgical in the setting of prior esophageal cancer. Stable. Will order pureed diet. 4. Frailty: He will benefit from marketing coordinator consultation. Past Med Surg Social Fam HX - Past Medical History Medical history: cancer, kidney stones, pulmonary embolus, other Additional medical history: lumbar stenosis, lumbar disc disease, ulnar neuropathy, thoracic spondylosis, neuropathy Psychiatric history: no psych history - Past Surgical History Surgical History: appendectomy, cancer surgery, cholecystectomy, other Additional surgical history: tonsils and adenoids, kyphoplasty, transhiatal esophagastrectomy - Social History Smoking Status: Never smoker Smokeless Tobacco Status: No Alcohol use: none Drug use: none - Family History Brother Living Status: Internal Medicine - H&P: Meds Tramadol HCl [Ultram] 50 mg PO Q6H PRN 06/12/18 [History] Acetaminophen [Tylenol] 500 mg PO Q6HR PRN #20 tablet 06/21/18 [Rx] Mupirocin [Bactroban Oint] 22 appl TP BID #1 tube 06/21/18 [Rx] predniSONE [PredniSONE] 20 mg PO BID #10 tablet 06/21/18 [Rx] Allergy/AdvReac Type Severity Reaction Status Date / Time No Known Allergies Allergy Verified 06/21/18 12:26 All Systems PM: A 10-system review of systems was performed and is negative for pertinent findings except as documented above in the HPI. - Constitutional Vitals: Temp Pulse Resp BP Pulse Ox 98.3 F 66 20 136/86 100 09/12/18 15:06 09/12/18 20:17 09/12/18 20:17 09/12/18 20:17 09/12/18 20:17 Exam: . Internal Med - H&P Results - Labs CBC & Chem 7: 09/12/18 19:28 09/12/18 15:21 Labs: Short CBC 09/12/18 09/12/18 Range/Units 15:21 19:28 WBC 9.8 9.6 (4.3-11.1) K/mcL Hgb 13.2 13.2 (12.9-16.9) g/dL Hct 40.8 40.9 (37.5-50.1) % Plt Count 238 234 (140-400) K/mcL Neutrophils # 8.7 (1.6-8.9) K/mcL BMP 09/12/18 15:21 Sodium 139 Potassium 4.2 Chloride 104 Carbon Dioxide 29 BUN 20 Creatinine 1.00 Glucose 102 Calcium 9.5 Cardiac Enzymes 09/12/18 Range/Units 15:21 Troponin I < 0.03 (< 0.04) ng/mL Liver Function 09/12/18 Range/Units 15:17 Total Bilirubin 1.2 H (0.3-1.0) mg/dL Direct Bilirubin 0.2 (0.0-0.2) mg/dL AST 17 (13-39) Units/L ALT 15 (7-52) Units/L Alkaline Phosphatase 76 (34-104) Units/L Albumin 4.0 (3.5-5.7) g/dL - Impressions ITS Impressions Chest X-Ray 09/12/18 15:10 IMPRESSION: 1. Stable postsurgical change and evidence of asbestos related pleural disease. 2. No acute abnormality. D/ / 09/12/2018 15:46:56 Maximilian Chung MD / danilo Interpreting Provider: Maximilian Chung MD Abdomen/Pelvis CT 09/12/18 15:19 IMPRESSION: 1. Short segment enteroenteric intussusception in the left lower quadrant with no obstruction. This may be a transient incidental finding, however a lead point mass is not excluded 2. Bilateral nephrolithiasis 3. Prostatic enlargement 4. Chronic changes in the lower chest D/ / Ethan Vitale MD / Ethan Vitale MD Interpreting Provider: Ethan Vitael MD Chest CTA 09/12/18 16:26 IMPRESSION: No evidence of acute process in the chest. Unchanged chronic embolism versus thrombosis of the left distal main pulmonary artery into the left lower lobe. D/ / Nathanael Hogan MD / Nathanael Hogan MD Interpreting Provider: Nathanael Hogan MD - Time Spent With Patient Total time spent is greater than 50% in coordination of care (as documented) at patient's floor/unit and/or counseling patient: Greater than 35 minutes
[2018-09-13] MEDS: *HR* Heparin 5,000 UNIT/ML VIAL SQ SCH ×4 (00:30→21:41)
[2018-09-13 04:45] LABS: Basophils % 0.3 %; Eosinophils % 0.3 %; Hematocrit 35.7 % (37.5-50.1); Hemoglobin 11.7 g/dL (12.9-16.9); Immature Granulocytes % 0.2 % (0-4); Lymphocytes # 0.5 K/mcL (0.6-4.6); Lymphocytes % 6.8 %; Mean Corpuscular HGB Conc 32.8 g/dL (31.6-35.5); Mean Corpuscular Hemoglobin 32.4 pg (28.0-33.3); Mean Corpuscular Volume 98.9 fL (83.0-100.0); Mean Platelet Volume 9.1 fL (9.4-12.4); Monocytes # 0.6 K/mcL (0.0-1.3); Monocytes % 8.3 %; Neutrophils # 5.6 K/mcL (1.6-8.9); Platelet Count 215 K/mcL (140-400); Red Blood Count 3.61 M/mcL (4.19-5.50); Red Cell Distribution Width 13.4 % (11.5-14.5); Segmented Neutrophils % 84.1 %
[2018-09-13 05:08] LABS: BUN/Creatinine Ratio 20 (6-26); Blood Urea Nitrogen 16 mg/dL (8-23); Carbon Dioxide 27 mEq/L (23-29); Chloride 107 mEq/L (98-107); Glucose 87 mg/dL (70-105); Osmolality,Calculated 293 (280-300); Potassium 4.2 mEq/L (3.5-5.1); Sodium 141 mEq/L (136-145); eGFR For Non-African Americans > 60 (> 60)
[2018-09-13] MEDS: *HR* HYDROcodone/Acet 5/325 mg TABLET PO PRN (09:31)
--- NOTE | 2018-09-13 10:19 | Internal Med Progress Note ---
Hospitalist Progress Note - Encounter Date of Encounter: 09/13/18 Time of Encounter: 10:18 - Subjective Interval History: Patient is still complaining of right neck pain especially point tenderness behind the sternocleidomastoid and requesting for a stronger pain medicine. at bedside. Review of the lab and vitals Patient denies fever chills vomiting headache dizziness diarrhea. Patient has diffuse pain including abdomen and chest pain for some time and has been getting Ultram from his primary care physician. - Exam Vitals: Temp Pulse Resp BP Pulse Ox 98.1 F 59 18 144/88 97 09/13/18 07:12 09/13/18 07:12 09/13/18 07:12 09/13/18 07:12 09/13/18 07:12 Exam: Vitals: Reviewed General: Cachectic appearing . Moderate distress due to pain and holding the right side of neck. Poor historian. Limited communication. Follows commands Skin: Pale and dry HEENT: Dry mucous membranes. PERRLA EOMI Neck: Tender behind sternocleidomastoid. Questionable carotid bruit. Neck supple. Questionable tiny a small tender soft tissue mass or could be l ymphadenopathy behind the sternocleidomastoid. Chest: Decreased breath sound. No wheezes, rales or rhonchi Heart: Normal S1 & S2; rhythmic. No rubs or murmurs. Abdomen: Excavated and non-tender to palpation. No peritoneal reaction. Extremities: Distal acrocyanosis is present but warm and non-edematous. Normal distal pulses. Neurological: Awake, alert and oriented to person, place and time. No focal deficits. Motor 5 x 5 in all 4 extremities. Psych: Affect appropriate.. - Assessment and Plan (1) Neck pain Current Visit: Yes Status: Acute Assessment and Plan: With questionable mass palpable behind the sub-sternocleidomastoid. CT soft tissue ordered. Also questionable carotid bruit therefore carotid ultrasound ordered. Pain management (2) Chest pain Current Visit: Yes Status: Acute Assessment and Plan: No nonspecific. 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 Initial troponin negative Raised d-dimer. Doppler venous ultrasound ordered. Consulted white washer piler. Echocardiogram ordered. Pain management [place] and fentanyl when necessary a started. (3) Pulmonary embolism Current Visit: Yes Status: Acute Assessment and Plan: Chronic no acute finding. CT angiogram reviewed. Talked to [facility] -as patient has old PE on CT 9 months ago then does not seem like candidate for anticoagulation at this time but he will also talked to the family in meanwhile will wait for Doppler venous ultrasound. IMPRESSION: No evidence of acute process in the chest. Unchanged chronic embolism versus thrombosis of the left distal main pulmonary artery into the left lower lobe. (4) History of esophageal cancer Current Visit: No Status: Chronic Assessment and Plan: Status post esophagectomy and radiation. Does not follow oncologist currently. In remission (5) Weight loss, unintentional Current Visit: No Status: Chronic Assessment and Plan: After having a esophageal cancer treatment. He has been chronic slowly weight loss. is unable to quantify. Will consult ship washer. (6) Lung nodule < 6cm on CT Current Visit: Yes Status: Acute Assessment and Plan: Pulmonologists on board. CT chest- Extensive pleural calcifications and pleural thickening again noted, no significant change. Chronic small amounts of left-sided pleural fluid and air again noted, slightly decreased. No evidence of pneumonia or other acute pulmonary process. Partially calcified nodule in the left lung base measuring 4 cm is unchanged. (7) Dysphagia Current Visit: Yes Status: Acute Assessment and Plan: Post-surgical in the setting of prior esophageal cancer. Stable. Will order pureed diet. 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 (9) Abdominal pain Current Visit: Yes Status: Acute (10) DVT prophylaxis Current Visit: No Status: Acute Assessment and Plan: Heparin subcutaneous (11) Goals of care, counseling/discussion Current Visit: Yes Status: Acute Assessment and Plan: Spent more than 35 minute inpatient care in communication with patient and family, nursing staff and water resource consultant white washer piler and rest room attendant - Time Spent with Patient Total time spent is greater than 50% in coordination of care (as documented) at patient's floor/unit and/or counseling patient: Greater than 35 minutes Plan of Care Discussed with: water resource consultant Internal Medicine: Result - Labs CBC & Chem 7: 09/13/18 03:49 09/13/18 03:49 Labs: Short CBC 09/12/18 09/12/18 09/13/18 Range/Units 15:21 19:28 03:49 WBC 9.8 9.6 6.6 (4.3-11.1) K/mcL Hgb 13.2 13.2 11.7 L D (12.9-16.9) g/dL Hct 40.8 40.9 35.7 L (37.5-50.1) % Plt Count 238 234 215 (140-400) K/mcL Neutrophils # 8.7 5.6 (1.6-8.9) K/mcL BMP 09/12/18 09/13/18 15:21 03:49 Sodium 139 141 Potassium 4.2 4.2 Chloride 104 107 Carbon Dioxide 29 27 BUN 20 16 Creatinine 1.00 0.80 Glucose 102 87 Calcium 9.5 9.0 Cardiac Enzymes 09/12/18 Range/Units 15:21 Troponin I < 0.03 (< 0.04) ng/mL Liver Function 09/12/18 Range/Units 15:17 Total Bilirubin 1.2 H (0.3-1.0) mg/dL Direct Bilirubin 0.2 (0.0-0.2) mg/dL AST 17 (13-39) Units/L ALT 15 (7-52) Units/L Alkaline Phosphatase 76 (34-104) Units/L Albumin 4.0 (3.5-5.7) g/dL - ABG Interpretation ABG results: PT/INR, D-dimer PT 11.6 Seconds (9.4-12.1) 09/12/18 19:28 1718 ng/mLFEU (0-500) H 09/12/18 15:21 - Impressions Impressions Chest X-Ray 09/12/18 15:10 IMPRESSION: 1. Stable postsurgical change and evidence of asbestos related pleural disease. 2. No acute abnormality. D/ / 09/12/2018 15:46:56 Maximilian Chung MD / danilo Interpreting Provider: Maximilian Chung MD Abdomen/Pelvis CT 09/12/18 15:19 IMPRESSION: 1. Short segment enteroenteric intussusception in the left lower quadrant with no obstruction. This may be a transient incidental finding, however a lead point mass is not excluded 2. Bilateral nephrolithiasis 3. Prostatic enlargement 4. Chronic changes in the lower chest D/ / Ethan Vitale MD / Ethan Vitale MD Interpreting Provider: Ethan Vitale MD Chest CTA 09/12/18 16:26 IMPRESSION: No evidence of acute process in the chest. Unchanged chronic embolism versus thrombosis of the left distal main pulmonary artery into the left lower lobe. D/ / Nathanael Hogan MD / Nathanael Hogan MD Interpreting Provider: Nathanael Hogan MD Consult Discharge Plan - Plan Referrals: Glenn Riley DO [Primary Care Provider] - (2) Chest pain Qualifiers: Chest pain type: unspecified Qualified Code(s): R07.9 - Chest pain, unspecified (3) Pulmonary embolism Qualifiers: Pulmonary embolism type: unspecified Chronicity: acute Acute cor pulmonale presence: without acute cor pulmonale Qualified Code(s): I26.99 - Other pulmonary embolism without acute cor pulmonale
[2018-09-13] MEDS ORDERED: *HR* FentaNYL (PF) 100 MCG/2 ML VIAL IVP PRN (10:40)
--- NOTE | 2018-09-13 11:21 | Oncology Inp Consult Note ---
Date of Encounter: 09/13/18 Time of Encounter: 11:45 Assessment and Plan (1) History of esophageal cancer Status: Chronic Assessment and plan: Patient has remote history of squamous cell carcinoma. He is status post concurrent chemoradiotherapy in 2011 followed by esophagectomy. He has no evidence of recurrent disease at this time. 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 The lung lesion has been stable for over one year and is calcified. I have no new specific recommendations today. I do not appreciate any adenopathy in the neck. I do not feel CT imaging neck is necessary. Given his advanced age, dementia and debility, no further treatment be pursued. Of note, he does have his power port in place. I think it would be worthwhile to have interventional radiology remove this during his hospital stay. It is a high risk for erosion through the skin given his emaciation. (2) Pulmonary embolism Status: Acute Assessment and plan: Patient has evidence of chronically embolism. This was present on imaging July 2017. Duplex Dopplers currently being completed. He may have a left superficial vein thrombosis of undetermined age. He is a significant fall risk. I do not feel feel further workup is warranted. There is no need for anticoagulation. Qualifiers: Pulmonary embolism type: unspecified Chronicity: acute Acute cor pulmonale presence: without acute cor pulmonale Qualified Code(s): I26.99 - Other pulmonary embolism without acute cor pulmonale (3) Weight loss, unintentional Status: Chronic Assessment and plan: Patient is very emaciated. This appears to be a chronic process. His weight was 147 pounds in 2016. Today's weight is 121 pounds. I recommended nutrition consultation and we will place my mirtazapine 7.5 mg at night to see if this help stimulate his appetite. He has no evidence of recurrent malignancy. I think this is multifactorial may be secondary to radiation changes to the esophagus and prior esophagectomy as his weight loss has been more prominent since surgery. They also be related to dementia. - Data of Consult Requesting Physician: Doc Lazo MD Primary Care Provider: Thiago Riley DO - Consult Narrative Reason for consult: Chronic PE on exam, do I need to anticoagulate History of present illness: Mr. Munoz is a very pleasant 83-year-old man (birthday is today) with a remote history of esophageal cancer who was admitted to the hospital with initial right upper abdominal pain that has been present for months and later migrated to his right chest more recently involved his right neck. CT imaging of the abdomen and pelvis was obtained in the emergency department and is reviewed below. In brief, CT imaging revealed short segment and throat enteroenteric intussusception in the left lower quadrant without obstruction. This may be a transient finding. Bilateral nephrolithiasis was present. It is also to have extensive calcifications in his bilateral lower chest which has been stable. 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 Personal review of his imaging from December 2017 and also July 2017 shows this to be present and chronic. He also has chronic pleural plaques as well as a calcified left lower lobe pulmonary nodule which is been stable since July 2017. We are asked to comment on the need for anticoagulation or further workup. Per discussion with the hospitalist, Dr. Coats, CT scan of the neck has been ordered to further evaluate neck pain and lymphadenopathy. 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 He underwent esophagectomy 11/06/2011 revealed no evidence of residual disease. He did have a food impaction this past December required removal by Dr. Rosas. He was last seen by Dr. Cardoso in September 2015 but has failed follow-up. Today, he denies any pain to speak of. The pain in his lower abdomen has been "present for years." He currently denies any chest pain or neck pain. He denies any dysphagia or diarrhea aphasia. He cannot eat most meet secondary to his previous surgery. No significant change in bowel or bladder habit. He denies a lower stray swelling or pain. He is currently undergoing duplex Doppler. He is a very poor historian. He has obvious dementia; no other family at bedside. 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[employer]) - Family History Brother Living Status: Medications and Allergies Tramadol HCl [Ultram] 50 mg PO Q6H PRN 06/12/18 [History] Allergy/AdvReac Type Severity Reaction Status Date / Time No Known Allergies Allergy Verified 06/21/18 12:26 All systems: reviewed and no additional remarkable complaints except as stated Constitutional: Present: fatigue, weight loss Eyes: Present: as per HPI Ears: Present: as per HPI Nose, mouth and throat: Present: as per HPI Cardiovascular: Present: as per HPI Respiratory: Present: as per HPI Gastrointestinal: Present: as per HPI Genitourinary: Present: as per HPI Musculoskeletal: Present: muscle weakness Integumentary: Present: as per HPI Neurological: Present: disequilibrium Psychiatric: Present: as per HPI Oncology - Exam - Constitutional General appearance: cooperative, no acute distress, thin - Head Head exam: Present: atraumatic, normal inspection, normocephalic - Eye Eye exam: Present: normal appearance, conjuntiva pink, sclera anicteric - ENT ENT exam: Present: mucous membranes moist, normal oropharynx - Neck Neck exam: Present: full ROM, normal inspection - Respiratory Respiratory exam: Present: CTAB - Cardiovascular Cardiovascular exam: Present: bradycardia, systolic murmur - GI/Abdominal GI/Abdominal exam: Present: normal bowel sounds, soft Additional comments: Scaphoid - Extremities Exam Extremities exam: Present: normal inspection - Back Exam Back exam: Present: normal inspection - Neurological Exam Neurological exam: Present: alert, CN II-XII intact, no focal deficits Oncology Inpatient Results Labs: Laboratory Results - last 24 hr 09/12/18 09/12/18 09/12/18 15:17 15:21 15:21 WBC 9.8 RBC 4.05 L Hgb 13.2 Hct 40.8 MCV 100.7 H MCH 32.6 MCHC 32.4 RDW 13.4 Plt Count 238 MPV 8.7 L Immature Gran % 0.3 Seg Neutrophils % 88.5 Lymphocytes % 4.6 Monocytes % 6.3 Eosinophils % 0.1 Basophils % 0.2 Neutrophils # 8.7 Lymphocytes # 0.5 L Monocytes # 0.6 Eosinophils # 0.0 Basophils # 0.0 PT 11.7 INR 1.0 APTT 32.8 D-Dimer 1718 H Heparin Anti-Xa, Unfract Sodium Potassium Chloride Carbon Dioxide BUN Creatinine Est GFR ( Amer) Est GFR (Non-Af Amer) BUN/Creatinine Ratio Glucose Calculated Osmolality Calcium Total Bilirubin 1.2 H Direct Bilirubin 0.2 Indirect Bilirubin 1.0 AST 17 ALT 15 Alkaline Phosphatase 76 Troponin I Serum Total Protein 7.0 Albumin 4.0 Globulin 3.0 Albumin/Globulin Ratio 1.3 Lipase 18 09/12/18 09/12/18 09/12/18 15:21 19:28 19:28 WBC 9.6 RBC 4.11 L Hgb 13.2 Hct 40.9 MCV 99.5 MCH 32.1 MCHC 32.3 RDW 13.3 Plt Count 234 MPV 8.8 L Immature Gran % Seg Neutrophils % Lymphocytes % Monocytes % Eosinophils % Basophils % Neutrophils # Lymphocytes # Monocytes # Eosinophils # Basophils # PT 11.6 INR 1.0 APTT D-Dimer Heparin Anti-Xa, Unfract 0.01 L Sodium 139 Potassium 4.2 Chloride 104 Carbon Dioxide 29 BUN 20 Creatinine 1.00 Est GFR ( Amer) > 60 Est GFR (Non-Af Amer) > 60 BUN/Creatinine Ratio 20 Glucose 102 Calculated Osmolality 291 Calcium 9.5 Total Bilirubin Direct Bilirubin Indirect Bilirubin AST ALT Alkaline Phosphatase Troponin I < 0.03 Serum Total Protein Albumin Globulin Albumin/Globulin Ratio Lipase 09/13/18 09/13/18 03:49 03:49 WBC 6.6 RBC 3.61 L Hgb 11.7 L D Hct 35.7 L MCV 98.9 MCH 32.4 MCHC 32.8 RDW 13.4 Plt Count 215 MPV 9.1 L Immature Gran % 0.2 Seg Neutrophils % 84.1 Lymphocytes % 6.8 Monocytes % 8.3 Eosinophils % 0.3 Basophils % 0.3 Neutrophils # 5.6 Lymphocytes # 0.5 L Monocytes # 0.6 Eosinophils # 0.0 Basophils # 0.0 PT INR APTT D-Dimer Heparin Anti-Xa, Unfract Sodium 141 Potassium 4.2 Chloride 107 Carbon Dioxide 27 BUN 16 Creatinine 0.80 Est GFR ( Amer) > 60 Est GFR (Non-Af Amer) > 60 BUN/Creatinine Ratio 20 Glucose 87 Calculated Osmolality 293 Calcium 9.0 Total Bilirubin Direct Bilirubin Indirect Bilirubin AST ALT Alkaline Phosphatase Troponin I Serum Total Protein Albumin Globulin Albumin/Globulin Ratio Lipase CT OF THE ABDOMEN AND PELVIS WITHOUT CONTRAST 09/12/2018 3:50 pm FINDINGS: Lower Chest: Chronic pleural thickening with dense calcifications bilaterally. Chronic atelectasis with bronchiectasis in the lung bases. Organs: 8 mm nonobstructing right renal stone. Tiny nonobstructing left renal stone. 5 mm hyperdense right renal cyst. Remaining solid organs have an unremarkable noncontrast appearance. Gallbladder surgically absent. GI/Bowel: Limited evaluation of the gastrointestinal tract due to the absence of contrast combined with limited intraabdominal fat. There is a short enteroenteric intussusception in the left lower quadrant without proximal intestinal distention. No other intrinsic gastrointestinal abnormality is demonstrated. Pelvis: Urinary bladder unremarkable. Prostate gland enlarged. No pelvic fluid Peritoneum/Retroperitoneum: No ascites or pneumoperitoneum. Aorta normal in caliber. Bones/Soft Tissues: No acute bony abnormality CT/CT abd pelvis wo no iv no oral IMPRESSION: 1. Short segment enteroenteric intussusception in the left lower quadrant with no obstruction. This may be a transient incidental finding, however a lead point mass is not excluded 2. Bilateral nephrolithiasis 3. Prostatic enlargement 4. Chronic changes in the lower chest CTA OF THE CHEST 09/12/2018 5:58 pm FINDINGS: Pulmonary Arteries: There is an unchanged chronic peripheral pulmonary embolism beginning in the distal left main pulmonary artery, extending into a left lower lobe pulmonary artery posteromedial segment. No evidence of pulmonary embolism elsewhere. Mediastinum: There is minimal contrast in the aorta, grossly no dissection or other acute process. No pericardial effusion. Postsurgical changes from esophagectomy and gastric pull-through again noted. Lungs/pleura: Extensive pleural calcifications and pleural thickening again noted, no significant change. Chronic small amounts of left-sided pleural fluid and air again noted, slightly decreased. No evidence of pneumonia or other acute pulmonary process. Partially calcified nodule in the left lung base measuring 4 cm is unchanged. Upper Abdomen: Negative. No acute finding. Soft Tissues/Bones: No acute bone or soft tissue abnormality. CT/CT angio chest IMPRESSION: No evidence of acute process in the chest. Unchanged chronic embolism versus thrombosis of the left distal main pulmonary artery into the left lower lobe. Consult Discharge Plan - Plan Referrals: Glenn Riley DO [Primary Care Provider] - Inpatient Charges Provider: Dr. Yolande Watson Consult - Inpatient Medicare Only: [id number]
--- NOTE | 2018-09-13 11:23 | Pulmonology Consult Note ---
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 High risk for systemic anticoagulation discussed the case with oncology who is in agreement recommend conservative management at this time. Qualifiers: Pulmonary embolism type: unspecified Chronicity: acute Acute cor pulmonale presence: without acute cor pulmonale Qualified Code(s): I26.99 - Other pulmonary embolism without acute cor pulmonale (2) Asbestos exposure Current Visit: Yes Status: Acute I reviewed his CT scan which is notable for several on chronic changes including left lower lobe prior radiation exposure as noted in right upper lobe features consistent with the pleural-based plaques and scarring all of which appear old and there is no clear evidence to me of underlying malignancy. No further intervention is recommended this time given patient's advanced age and multiple medical comorbidities (3) Weight loss, unintentional Current Visit: No Status: Chronic Suspected secondary to underlying esophageal disease and dysmotility nutritional consult is recommended Pulmonary will sign off please call with any questions History of Present Illness Consult date: 09/13/18 Requesting physician: Anette Coats Reason for consult: pulmonary embolism Chief complaint: Chest Pain History of present illness: This is a pleasant 83-year-old gentleman with past medical history of esophageal cancer status post esophagectomy with gastric pull-through followed by concomitant chemoradiation patient has been in complete remission from this standpoint but has had multiple esophageal dilations for stenosis by Dr. Rosas. He presented for worsening chest pain patient described pain that started "in his lower stomach moved up from his ribs up into his shoulder and this is been going on from what he tells me for several months but getting worse apparently. Unfortunately patient is a very willing historian but deemed unreliable I suspect some degree of underlying dementia he becomes tangential at times and tends to repeat stories from the distant pass from what I can gather however he has endorsed significant weight loss and has had decreased intake as a result of having some dysphasia. Evaluation in the emergency room including CT angiogram was performed which was notable for chronic right pulmonary thrombus. Port was consulted for further evaluation of this. Patient is a former smoker but states that he rarely smokes when he did it was cigars that he did not do this very often. He did have exposure to working in the [employer] and [employer]. He denies any fevers or chills hemoptysis associated says that his breathing is not too bad he is unable to tell me if he is getting more dyspneic when he walks however Past Med Surg Social Fam HX - Past Medical History Medical history: cancer, kidney stones, pulmonary embolus, other Additional medical history: lumbar stenosis, lumbar disc disease, ulnar neuropathy, thoracic spondylosis, neuropathy Psychiatric history: no psych history - Past Surgical History Surgical History: appendectomy, cancer surgery, cholecystectomy, other Additional surgical history: tonsils and adenoids, kyphoplasty, transhiatal esophagastrectomy - Social History Smoking Status: Never smoker Smokeless Tobacco Status: No Alcohol use: none Drug use: none - Family History Brother Living Status: Medications and Allergies Tramadol HCl [Ultram] 50 mg PO Q6H PRN 06/12/18 [History] Allergy/AdvReac Type Severity Reaction Status Date / Time No Known Allergies Allergy Verified 06/21/18 12:26 All Systems: The remainder of the systems were reviewed and are negative Physical Examination General appearance: other (Frail elderly gentleman no acute distress) ENT: other (Poor dentition) Neck: no lymphadenopathy Effort: normal Auscultation: bilateral: rhonchi (Scattered predominantly in the lower lung goldberg) Cardiovascular: regular rate and rhythm Gastrointestinal: normoactive bowel sounds, soft, non-tender, other (Scaphoid abdomen) Integumentary: normal Extremities: no cyanosis, no edema, no clubbing Musculoskeletal: no deformities non-focal exam, pupils equal and round mood appropriate Results - Laboratory Findings CBC and BMP: 09/13/18 03:49 09/13/18 03:49 PT/INR, D-dimer PT 11.6 Seconds (9.4-12.1) 09/12/18 19:28 1718 ng/mLFEU (0-500) H 09/12/18 15:21 Abnormal lab findings: Abnormal lab results RBC 3.61 M/mcL (4.19-5.50) L 09/13/18 03:49 Hgb 11.7 g/dL (12.9-16.9) L D 09/13/18 03:49 Hct 35.7 % (37.5-50.1) L 09/13/18 03:49 MCV 100.7 fL (83.0-100.0) H 09/12/18 15:21 MPV 9.1 fL (9.4-12.4) L 09/13/18 03:49 0.5 K/mcL (0.6-4.6) L 09/13/18 03:49 1718 ng/mLFEU (0-500) H 09/12/18 15:21 Heparin Anti-Xa, Unfract 0.01 IU/mL (0.30-0.70) L 09/12/18 19:28 1.2 mg/dL (0.3-1.0) H 09/12/18 15:17 - Diagnostic Findings Chest x-ray: report reviewed, image reviewed CT scan - chest: report reviewed, image reviewed - Clinical Findings Intake & Output: Intake & Output 09/12/18 09/13/18 09/13/18 23:59 07:59 15:59 Intake Total 0 / 0 0 / 120 120 / 120 Balance 0 / 0 0 / 120 120 / 120 Weight 55.1 kg Consult Discharge Plan - Plan Referrals: Glenn Riley DO [Primary Care Provider] -
[2018-09-13] MEDS ORDERED: Isovue-370 500 ML BOTTLE IVP ONE (12:27)
[2018-09-13] MEDS: 0.9 % Sodium Chloride 1,000 ML IVC SCH ×2 (14:15→21:41)
[2018-09-13] MEDS: Mirtazapine 15 MG TABLET PO SCH (21:41)
[2018-09-14 07:51] LABS: Basophils % 0.5 %; Eosinophils # 0.1 K/mcL (0.0-0.6); Eosinophils % 1.5 %; Hematocrit 37.3 % (37.5-50.1); Hemoglobin 12.2 g/dL (12.9-16.9); Immature Granulocytes % 0.2 % (0-4); Lymphocytes # 0.5 K/mcL (0.6-4.6); Lymphocytes % 8.7 %; Mean Corpuscular HGB Conc 32.7 g/dL (31.6-35.5); Mean Corpuscular Hemoglobin 32.4 pg (28.0-33.3); Mean Corpuscular Volume 99.2 fL (83.0-100.0); Mean Platelet Volume 8.8 fL (9.4-12.4); Monocytes # 0.5 K/mcL (0.0-1.3); Monocytes % 7.8 %; Platelet Count 220 K/mcL (140-400); Red Blood Count 3.76 M/mcL (4.19-5.50); Red Cell Distribution Width 13.3 % (11.5-14.5); Segmented Neutrophils % 81.3 %
[2018-09-14 08:05] LABS: BUN/Creatinine Ratio 17 (6-26); Blood Urea Nitrogen 16 mg/dL (8-23); Carbon Dioxide 31 mEq/L (23-29); Chloride 105 mEq/L (98-107); Glucose 83 mg/dL (70-105); Magnesium 2.1 mg/dL (1.6-2.6); Osmolality,Calculated 290 (280-300); Potassium 3.8 mEq/L (3.5-5.1); Sodium 140 mEq/L (136-145); eGFR For Non-African Americans > 60 (> 60)
--- NOTE | 2018-09-14 10:44 | Internal Med Progress Note ---
Hospitalist Progress Note - Encounter Date of Encounter: 09/14/18 Time of Encounter: 10:42 - Subjective Interval History: No acute event overnight. His neck pain is better on pain medication. Complaint of fatigue and generalized weakness not able to get out of the bed. No family at bedside. Today he was more alert and communicating but is still remains poor historian. Reviewed vitals and labs Patient denies fever chills nausea vomiting headache dizziness chest pain abdominal pain diarrhea - Exam Vitals: Temp Pulse Resp BP Pulse Ox 97.4 F L 61 16 145/91 94 09/14/18 07:32 09/14/18 07:32 09/14/18 03:49 09/14/18 07:32 09/14/18 07:32 Exam: General: Cachectic appearing . No acute distress. Having his breakfast. Poor historian. Limited communication. Follows commands Skin: Pale and dry HEENT: Moist oral mucosa . PERRLA EOMI Neck: Decreased tenderness and neck around sternocleidomastoid . Neck supple. No lymphadenopathy Chest: Decreased breath sound-better. No wheezes, rales or rhonchi Heart: Normal S1 & S2; rhythmic. No rubs or murmurs. Abdomen: Excavated and non-tender to palpation. No peritoneal reaction. Positiv e bowel sounds Extremities: Distal acrocyanosis is present but warm and non-edematous. Normal distal pulses. Neurological: Awake, alert and oriented to person, place and time. No focal deficits. Motor 5 x 5 in all 4 extremities. Psych: Flat affect. No suicidal homicidal thoughts or plan - Assessment and Plan (1) Neck pain Current Visit: Yes Status: Acute Assessment and Plan: Possibly musculoskeletal. Earlier there was concern for tiny mass but CT soft tissue with no acute finding. Continue pain management. Carotid ultrasound report needs to be follow (2) Chest pain Current Visit: Yes Status: Acute Assessment and Plan: No chest pain. nonspecific. 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 Initial troponin negative Raised d-dimer. Doppler venous ultrasound with left superficial vein thrombosis of undeterminate is ordered. Got evaluated by human resources project manager and found no need for anticoagulation or further workup. He is a significant fall risk therefore PT OT on board Continue pain management [place] when necessary will stopped fentanyl. f/u cardiology on opd basis Impressions: LVEF 55-60%. Moderate concentric left ventricular hypertrophy. Moderate left ventricular diastolic dysfunction. Normal right ventricular structure and function. Moderately calcified non coronary aortic valve leaflet. Mild-moderate aortic stenosis; peak aortic velocity and mean gradient are 2.74m/s and 18 mmHg, respectively. Mild tricuspid regurgitation. No evidence of pulmonary hypertension.Estimated RVSP is 34 mmHg. Left Ventricular Wall Motion: Rest Echo Findings All wall segments showed normal motion. (3) Pulmonary embolism Current Visit: Yes Status: Acute Assessment and Plan: Chronic no acute finding. CT angiogram reviewed. Talked to [facility] hematologists . As mentioned above. CTA IMPRESSION: No evidence of acute process in the chest. Unchanged chronic embolism versus thrombosis of the left distal main pulmonary artery into the left lower lobe. 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 The lung lesion has been stable for over one year and is calcified. Of note, he does have his power port in place-May need to get removed during this hospital stay. consulted IR for non-emergent procedure. (5) Weight loss, unintentional Current Visit: No Status: Chronic Assessment and Plan: After having a esophageal cancer treatment. He has been chronic slowly weight loss. is unable to quantify. 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 (6) Lung nodule < 6cm on CT Current Visit: Yes Status: Acute Assessment and Plan: Pulmonologists on board. No further recommendation CT chest- Extensive pleural calcifications and pleural thickening again noted, no significant change. Chronic small amounts of left-sided pleural fluid and air again noted, slightly decreased. No evidence of pneumonia or other acute pulmonary process. Partially calcified nodule in the left lung base measuring 4 cm is unchanged. (7) Dysphagia Current Visit: Yes Status: Acute Assessment and Plan: Post-surgical in the setting of prior esophageal cancer. Stable. Acute Care Physical Therapist on board. Continue recommended diet. (8) Generalized weakness Current Visit: Yes Status: Acute Assessment and Plan: PT OT on board and recommended for SNF placement. package worker on board and possible basement after the long weekend on Saturday. Continue fall precaution (9) Abdominal pain Current Visit: Yes Status: Acute Assessment and Plan: Improved. in ER general surgeon Dr. Rosas was contacted who saw the patient and reviewed the CT scan stating that his this was not a true intussusception and that area localize was where he previously had a J-tube and was unlikely the source of his pain. IMPRESSION: 1. Short segment enteroenteric intussusception in the left lower quadrant with no obstruction. This may be a transient incidental finding, however a lead point mass is not excluded 2. Bilateral nephrolithiasis 3. Prostatic enlargement 4. Chronic changes in the lower chest (10) DVT prophylaxis Current Visit: No Status: Acute Assessment and Plan: Heparin subcutaneous (11) Goals of care, counseling/discussion Current Visit: Yes Status: Acute Assessment and Plan: package worker on board-needs to find the place for a snf facility Plan for discharge on Saturday - Time Spent with Patient Total time spent is greater than 50% in coordination of care (as documented) at patient's floor/unit and/or counseling patient: 25 - 35 minutes Plan of Care Discussed with: patient Internal Medicine: Result - Labs CBC & Chem 7: 09/14/18 07:11 09/14/18 07:11 Labs: Short CBC 09/14/18 Range/Units 07:11 WBC 6.2 (4.3-11.1) K/mcL Hgb 12.2 L (12.9-16.9) g/dL Hct 37.3 L (37.5-50.1) % Plt Count 220 (140-400) K/mcL Neutrophils # 5.0 (1.6-8.9) K/mcL BMP 09/14/18 07:11 Sodium 140 Potassium 3.8 Chloride 105 Carbon Dioxide 31 H BUN 16 Creatinine 0.96 Glucose 83 Calcium 9.0 - ABG Interpretation ABG results: PT/INR, D-dimer PT 11.6 Seconds (9.4-12.1) 09/12/18 19:28 1718 ng/mLFEU (0-500) H 09/12/18 15:21 - Impressions Impressions Soft Tissue Neck CT 09/13/18 10:23 IMPRESSION: No acute abnormality of the soft tissue structures of the neck. Dilatation of the upper esophagus containing debris. Refer to the chest CT for full evaluation. The patient has a history of esophageal cancer. D/ / 09/13/2018 12:53:11 Jennifer Norman MD / [facility] Interpreting Provider: Jennifer Norman MD Echocardiogram 09/13/18 21:08 Impressions: LVEF 55-60%. Moderate concentric left ventricular hypertrophy. Moderate left ventricular diastolic dysfunction. Normal right ventricular structure and function. Moderately calcified non coronary aortic valve leaflet. Mild-moderate aortic stenosis; peak aortic velocity and mean gradient are 2.74m/s and 18 mmHg, respectively. Mild tricuspid regurgitation. No evidence of pulmonary hypertension.Estimated RVSP is 34 mmHg. Left Ventricular Wall Motion: Rest Echo Findings All wall segments showed normal motion. Findings: Study Quality * Technically adequate exam. ECG Findings * Normal sinus rhythm. Left Ventricle * LVEF 55-60%. * Moderate concentric left ventricular hypertrophy. * Moderate left ventricular diastolic dysfunction. * Normal LV chamber size Right Ventricle * Normal right ventricular structure and function. Left Atrium * Normal left atrial size. Right Atrium * Normal right atrial size. Aortic Valve * Trileaflet aortic valve. * Moderately calcified non coronary aortic valve leaflet, mild-moderate aortic stenosis.Peak aortic velocity and mean gradient are 2.74m/s and 18 mmHg, respectively. * Mild aortic regurgitation. * Mild-moderate aortic stenosis. * Peak and mean gradients are 2.74 18 mmHg, respectively. Mitral Valve * Normal mitral valve structure. * No mitral regurgitation. * No mitral stenosis. Tricuspid Valve * Mild tricuspid regurgitation. * No tricuspid stenosis. * No evidence of pulmonary hypertension.Estimated RVSP is 34 mmHg. * Normal tricuspid valve structure. * Estimated RVSP is 34 mmHg. * Estimated RA pressure is 5 mmHg. Pulmonic Valve * Mild pulmonic regurgitation. Aorta * Normally sized aortic root. Pericardium * The pericardium appears normal. IVC * Normal IVC dimensions and inspiratory collapse. Pulmonary Artery * Normal visualized portions of the main pulmonary artery. Consult Discharge Plan - Plan Referrals: Glenn Riley DO [Primary Care Provider] - (2) Chest pain Qualifiers: Chest pain type: unspecified Qualified Code(s): R07.9 - Chest pain, u nspecified (3) Pulmonary embolism Qualifiers: Pulmonary embolism type: unspecified Chronicity: acute Acute cor pulmonale presence: without acute cor pulmonale Qualified Code(s): I26.99 - Other pulmonary embolism without acute cor pulmonale (7) Dysphagia Qualifiers: Dysphagia type: unspecified Qualified Code(s): R13.10 - Dysphagia, u nspecified
[2018-09-14] MEDS: *HR* Heparin 5,000 UNIT/ML VIAL SQ SCH ×3 (12:02→21:04)
[2018-09-14] MEDS: *HR* HYDROcodone/Acet 5/325 mg TABLET PO PRN (14:32)
[2018-09-14] MEDS: *HR* OxyCODONE/APAP 5/325 TABLET PO PRN (17:41)
[2018-09-14] MEDS: Mirtazapine 15 MG TABLET PO SCH (21:04)
[2018-09-15] MEDS: *HR* Heparin 5,000 UNIT/ML VIAL SQ SCH ×3 (05:54→21:12)
[2018-09-15] MEDS: *HR* OxyCODONE/APAP 5/325 TABLET PO PRN ×2 (06:48→21:09)
[2018-09-15 06:54] LABS: Basophils % 0.4 %; Eosinophils # 0.1 K/mcL (0.0-0.6); Eosinophils % 1.6 %; Hematocrit 38.8 % (37.5-50.1); Hemoglobin 12.7 g/dL (12.9-16.9); Immature Granulocytes % 0.4 % (0-4); Lymphocytes # 0.5 K/mcL (0.6-4.6); Lymphocytes % 9.4 %; Mean Corpuscular HGB Conc 32.7 g/dL (31.6-35.5); Mean Corpuscular Hemoglobin 32.6 pg (28.0-33.3); Mean Corpuscular Volume 99.5 fL (83.0-100.0); Mean Platelet Volume 8.8 fL (9.4-12.4); Monocytes # 0.4 K/mcL (0.0-1.3); Monocytes % 6.5 %; Neutrophils # 4.5 K/mcL (1.6-8.9); Platelet Count 244 K/mcL (140-400); Red Cell Distribution Width 13.3 % (11.5-14.5); Segmented Neutrophils % 81.7 %
[2018-09-15 07:13] LABS: BUN/Creatinine Ratio 18 (6-26); Blood Urea Nitrogen 18 mg/dL (8-23); Carbon Dioxide 31 mEq/L (23-29); Chloride 106 mEq/L (98-107); Glucose 82 mg/dL (70-105); Osmolality,Calculated 297 (280-300); Potassium 4.1 mEq/L (3.5-5.1); Sodium 143 mEq/L (136-145); eGFR For Non-African Americans > 60 (> 60)
--- NOTE | 2018-09-15 09:15 | Internal Med Progress Note ---
Hospitalist Progress Note - Encounter Date of Encounter: 09/15/18 Time of Encounter: 09:10 - Subjective Interval History: Patient seen and examined in intensity. No acute overnight events. Complains of pain in abdomen and back neck and chest which is migrating and occasionally outside of his body. Currently without the neck pain or chest pain and feeling slightly better. at bedside. Denies any fever or chills nausea vomiting or diarrhea. Has decreased appetite. Alert and oriented x2 but poor historian - Exam Vitals: Temp Pulse Resp BP Pulse Ox 97.6 F 64 12 139/81 95 09/15/18 06:42 09/15/18 06:42 09/15/18 00:39 09/15/18 06:42 09/15/18 06:42 Exam: Exam General: In no acute distress. cachectic Respiratory exam: CTAB. no accessory muscle use, rales, rhonchi, wheezes Cardiovascular exam: RRR, +S1, +S2. no murmur, gallop, rubs. GI/Abdominal exam: Non-tender, Non-distended, normal bowel sounds, soft, no peritoneal signs. Extremities exam: no pedal edema, pulses palpable in b/l lower extremities. no calf tenderness, no musculoskeletal tenderness Neurological exam: CN II-XII intact, AO X2, no focal deficits. generalized weakness Skin exam: No skin rash - Assessment and Plan (1) DVT prophylaxis Current Visit: No Status: Acute (2) Weight loss, unintentional Current Visit: No Status: Chronic (3) History of esophageal cancer Current Visit: No Status: Chronic (4) Chest pain Current Visit: Yes Status: Acute (5) Pulmonary embolism Current Visit: Yes Status: Acute (6) Lung nodule < 6cm on CT Current Visit: Yes Status: Acute (7) Dysphagia Current Visit: Yes Status: Acute (8) Generalized weakness Current Visit: Yes Status: Acute (9) Abdominal pain Current Visit: Yes Status: Acute (10) Neck pain Current Visit: Yes Status: Acute (11) Goals of care, counseling/discussion Current Visit: Yes Status: Acute - Summary of Assessment and Plan Summary of Assessment and Plan: Assessment Acute Non-specific pain of unclear origin possible psychosomatic Failure to thrive sev protein calorie malnutrition Lung nodule Dysphagia Goals of care discussion Chronic CHronic PE asbestosis Dementia h/o esophageal cancer Plan - Non specific pain involving chest, abdomen, neck and back with occasional sensation outside his body. No clear organic etiology discernible with workup till now. CXR unremarkable. CT abd/pelvis with possible enteroenteric intussuception but not likely per surgery who was contacted. CTA with chronic PE in LLL, soft tissue CT negative for acute abnormality. UA unremarkable without any blood with the nephrolithiasis. - No further treatment for chronic PE. Pulm signed off - started on mirtazapine for appetite stimulation with possible component of depression. Previously with dysphagia and was adviced by Dr Rosas per that he can eat anything. Had multiple esophageal dilation. Currently with puree. Will allow regular diet and see how he does. - IR consulted for port removal given risk of erosion per oncology. - PT recommended SNF placement - appears to not want aggresive measure. Patients response are equivocal and does not appears he quite understands my questions. Palliative care consulted for goals of care especially code status and feeding tube consideration. - Time Spent with Patient Total time spent is greater than 50% in coordination of care (as documented) at patient's floor/unit and/or counseling patient: Internal Medicine: Result - Labs CBC & Chem 7: 09/15/18 06:20 09/15/18 06:20 Labs: Short CBC 09/15/18 Range/Units 06:20 WBC 5.6 (4.3-11.1) K/mcL Hgb 12.7 L (12.9-16.9) g/dL Hct 38.8 (37.5-50.1) % Plt Count 244 (140-400) K/mcL Neutrophils # 4.5 (1.6-8.9) K/mcL BMP 09/15/18 06:20 Sodium 143 Potassium 4.1 Chloride 106 Carbon Dioxide 31 H BUN 18 Creatinine 0.98 Glucose 82 Calcium 9.0 - ABG Interpretation ABG results: PT/INR, D-dimer PT 11.6 Seconds (9.4-12.1) 09/12/18 19:28 1718 ng/mLFEU (0-500) H 09/12/18 15:21 Consult Discharge Plan - Plan Referrals: Glenn Riley DO [Primary Care Provider] - (4) Chest pain Qualifiers: Chest pain type: unspecified Qualified Code(s): R07.9 - Chest pain, unspecified (5) Pulmonary embolism Qualifiers: Pulmonary embolism type: unspecified Chronicity: acute Acute cor pulmonale presence: without acute cor pulmonale Qualified Code(s): I26.99 - Other pulmonary embolism without acute cor pulmonale (7) Dysphagia Qualifiers: Dysphagia type: unspecified Qualified Code(s): R13.10 - Dysphagia, unspecified
[2018-09-15 13:52] LABS: Bilirubin,Urine Negative (Negative); Blood,Urine Negative (Negative); Clarity,Urine Clear (Clear); Color,Urine Yellow (Yellow); Glucose,Urine (UA) Normal (Normal); Ketones,Urine Negative (Negative); Leukocyte Esterase,Urine Small (Negative); Nitrite,Urine Negative (Negative); PH,Urine 5.5 pH Units (5.0-8.0); Protein,Urine Negative (Neg-Trace); Specific Gravity,Urine > 1.030 (1.010-1.025); Urobilinogen,Urine Normal (Normal)
[2018-09-15 13:55] LABS: Hyaline Casts,Urine Moderate per lpf (None-Few)
[2018-09-15 14:19] LABS: Calcium Oxalate Crystals,Urine Present; Squamous Epithelial Cell,Urine Few per lpf (None-Few)
[2018-09-15 14:20] LABS: RBC,Urine 0-3 per hpf (0-3)
[2018-09-15 14:22] LABS: Bacteria,Urine Few per hpf (None-Few)
[2018-09-15] MEDS: Mirtazapine 15 MG TABLET PO SCH (21:09)
[2018-09-16] MEDS ORDERED: Acetaminophen IV 500 MG/50 ML INFUS..BTL IVPB ONE (05:22)
[2018-09-16] MEDS: *HR* Heparin 5,000 UNIT/ML VIAL SQ SCH ×3 (06:17→21:59)
--- NOTE | 2018-09-16 08:09 | Electrocardiograph Report ---
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
--- NOTE | 2018-09-16 10:09 | Palliative - Consult Note ---
Date of Encounter: 09/16/18 Time of Encounter: 10:00 - Assessment and Plan (1) Palliative care encounter Current Visit: Yes Status: Acute (2) Dysphagia Current Visit: No Status: Resolved Assessment and plan: D/w hospitalist, patient's asking for evaluation from surgery regarding if EGD/Dilitation needs performed. Last was in May with Dr. Jesus Rosas, who is very familiar with this patient. He had pureed diet order - but currently NPO. Qualifiers: Dysphagia type: pharyngoesophageal phase Qualified Code(s): R13.14 - Dysphagia, pharyngoesophageal phase (3) Weight loss, unintentional Current Visit: No Status: Chronic Assessment and plan: Director Of [employer] following. Reviewed their notes, patient weight has maintained for the last 6 months. He has enlive ordered. (4) History of esophageal cancer Current Visit: No Status: Chronic Assessment and plan: Dr. Watson consult reviewed. IR will be likely removing port today, has had for 7 years. No reoccurrence of disease has been found. (5) Generalized weakness Current Visit: Yes Status: Acute (6) Neck pain Current Visit: Yes Status: Acute Assessment and plan: Has Percocet ordered for pain - utilized x2 last 24 hours. Monitor. (7) Goals of care, counseling/discussion Current Visit: Yes Status: Acute Assessment and plan: Patient is alert and oriented x 2, but makes inappropriate statements and has difficulty following conversation. Lin arrived at bedside. She states that patient mental status waxes and wanes greatly, and has no short term memory. States that she has power of staff attorney, but does not have with her. She will get in touch with staff attorney for access. Discussed that if she gets copy to please bring in and let us review - to see if this covers healthcare decisions as well. However, she is next of kin. They were a second time later in life and share no children, but Lin states that they all get along very well. Discussed goals of care at length - she desires for surgical consult to eval for need to EGD/Dilatation again. States that is helpful for his swallowing and has not been done since May. She desires to continue this to assist with his swallowing issues. Discussed code status at length,, and according to his wishes, code status changed to DNR/DNI. I did attempt to confirm this with patient, but he was not able to follow my conversation,and kept telling me what he had to eat the day before, and was not able to participate in the conversation. Will continue to follow. Palliative-CN HPI - Data of Consult Consult date: 09/16/18 Requesting Physician: Hesham Pillai MD Primary Care Provider: Thiago Riley DO - Consult Narrative History of present illness: Mr. Munoz is a 83 year old male CC: Hesham Pillai MD - Time Spent with Patient Time: Total time spent is greater than 50% in coordination of care (as documented) at patient's floor/unit and/or counseling patient: Past Med Surg Social Fam HX - Past Medical History Medical history: cancer, kidney stones, pulmonary embolus, other Additional medical history: lumbar stenosis, lumbar disc disease, ulnar neuropathy, thoracic spondylosis, neuropathy Psychiatric history: no psych history - Past Surgical History Surgical History: appendectomy, cancer surgery, cholecystectomy, other Additional surgical history: tonsils and adenoids, kyphoplasty, transhiatal esophagastrectomy - Social History Smoking Status: Never smoker Smokeless Tobacco Status: No Alcohol use: none Drug use: none - Family History Brother Living Status: Medications and Allergies Tramadol HCl [Ultram] 50 mg PO Q6H PRN 06/12/18 [History] Allergy/AdvReac Type Severity Reaction Status Date / Time No Known Allergies Allergy Verified 06/21/18 12:26 Palliative Care-Exam - Constitutional Vitals: Temp Pulse Resp BP Pulse Ox 97.9 F 68 16 113/71 98 09/16/18 07:49 09/16/18 07:49 09/16/18 07:49 09/16/18 07:49 09/16/18 07:49 General appearance: Present: cooperative, no acute distress, thin - Head Head Exam: Present: normal inspection, normocephalic - Respiratory Respiratory exam: Present: decreased breath sounds, CTAB - Cardiovascular Cardiovascular exam: Present: +S1, +S2, systolic murmur - GI/Abdominal Exam GI/Abdominal exam: Present: normal bowel sounds, soft - Extremities Exam Extremities exam: Present: normal capillary refill, normal inspection - Neurological Exam Neurological exam: Present: alert, strengths equal and symetr throughout Additional comments: Oriented x2 this am. Able to answer most questions appropriately and tell me his family history. Follows commands. PORTER. - Psychiatric Psychiatric exam: Present: normal affect, normal mood - Skin Skin exam: Present: dry, warm Internal Medicine - CN: Reslt - Labs CBC & Chem 7: 09/15/18 06:20 09/15/18 06:20 Labs: Urine 09/14/18 Range/Units 13:33 Urine Color Yellow (Yellow) Urine Clarity Clear (Clear) Urine pH 5.5 (5.0-8.0) pH Units Ur Specific [place] > 1.030 H (1.010-1.025) Urine Protein Negative (Neg-Trace) mg/dL Urine Glucose (UA) Normal (Normal) mg/dL - ABG Interpretation ABG results: PT/INR, D-dimer PT 11.6 Seconds (9.4-12.1) 09/12/18 19:28 1718 ng/mLFEU (0-500) H 09/12/18 15:21 Consult Discharge Plan - Plan Referrals: Glenn Riley DO [Primary Care Provider] - Palliative Quality Palliative Quality: Screen for Code Status: Yes, Screen for Goals of Care: Yes, Screen for Pain: Yes, If Pain Regimen Started, Initiate Bowel Regimen: NA, Screen for Nausea/Vomitting: Yes Code Status: 09/12/18 20:33 Resuscitation Status: Active [RES] Routine Comment: Resuscitation Status: Full Code
--- NOTE | 2018-09-16 10:50 | Internal Med Progress Note ---
Hospitalist Progress Note - Encounter Date of Encounter: 09/16/18 Time of Encounter: 10:45 - Subjective Interval History: Patient seen and examined this morning with her. No acute overnight events. Patient more alert and oriented today and more coherent. Has on and off left- sided chest and neck pain which she reports occasionally feeling some outside the body. Denies any left-sided chest pain nausea vomiting difficulty breathing. - Exam Vitals: Temp Pulse Resp BP Pulse Ox 97.9 F 68 16 113/71 98 09/16/18 07:49 09/16/18 07:49 09/16/18 07:49 09/16/18 07:49 09/16/18 07:49 Exam: Exam General: In no acute distress. cachectic Respiratory exam: CTAB. no accessory muscle use, rales, rhonchi, wheezes Cardiovascular exam: RRR, +S1, +S2. no murmur, gallop, rubs. GI/Abdominal exam: Non-tender, Non-distended, normal bowel sounds, soft, no pe ritoneal signs. Extremities exam: no pedal edema, no calf tenderness, no musculoskeletal tenderness Neurological exam: CN II-XII intact, AO X3, no focal deficits. Skin exam: No skin rash - Assessment and Plan (1) DVT prophylaxis Current Visit: No Status: Acute (2) Weight loss, unintentional Current Visit: No Status: Chronic (3) History of esophageal cancer Current Visit: No Status: Chronic (4) Chest pain Current Visit: Yes Status: Acute (5) Pulmonary embolism Current Visit: Yes Status: Acute (6) Lung nodule < 6cm on CT Current Visit: Yes Status: Acute (7) Dysphagia Current Visit: Yes Status: Acute (8) Generalized weakness Current Visit: Yes Status: Acute (9) Abdominal pain Current Visit: Yes Status: Acute (10) Neck pain Current Visit: Yes Status: Acute (11) Goals of care, counseling/discussion Current Visit: Yes Status: Acute - Summary of Assessment and Plan Summary of Assessment and Plan: Assessment Acute Non-specific pain of unclear origin possible psychosomatic Failure to thrive sev protein calorie malnutrition Lung nodule Dysphagia Goals of care discussion Chronic CHronic PE asbestosis Dementia h/o esophageal cancer Plan - Non specific pain involving chest, abdomen, neck and back with occasional sensation outside his body. No clear organic etiology discernible with workup till now. CXR unremarkable. CT abd/pelvis with possible enteroenteric intussuception but not likely per surgery who was contacted. CTA with chronic PE in LLL, soft tissue CT negative for acute abnormality. UA unremarkable without any blood with the nephrolithiasis visible on CT. - No further treatment for chronic PE. Pulm signed off - started on mirtazapine for appetite stimulation with possible component of depression. Previously with dysphagia and was adviced by Dr Rosas per that he can eat anything. Had multiple esophageal dilation. after discussion with and palliative care decided will call surgery to evaluate for prophylactic dilation. Currently NPO for port removal. - IR consulted for port removal given risk of erosion per oncology. - PT recommended SNF placement - Palliative care consulted for goals of care discussion. Patient more alert and coherent. Does not seem to want aggressive measures. - Time Spent with Patient Total time spent is greater than 50% in coordination of care (as documented) at patient's floor/unit and/or counseling patient: Internal Medicine: Result - Labs CBC & Chem 7: 09/15/18 06:20 09/15/18 06:20 Labs: Urine 09/14/18 Range/Units 13:33 Urine Color Yellow (Yellow) Urine Clarity Clear (Clear) Urine pH 5.5 (5.0-8.0) pH Units Ur Specific [place] > 1.030 H (1.010-1.025) Urine Protein Negative (Neg-Trace) mg/dL Urine Glucose (UA) Normal (Normal) mg/dL - ABG Interpretation ABG results: PT/INR, D-dimer PT 11.6 Seconds (9.4-12.1) 09/12/18 19:28 1718 ng/mLFEU (0-500) H 09/12/18 15:21 Consult Discharge Plan - Plan Referrals: Glenn Riley DO [Primary Care Provider] - (4) Chest pain Qualifiers: Chest pain type: unspecified Qualified Code(s): R07.9 - Chest pain, unspecified (5) Pulmonary embolism Qualifiers: Pulmonary embolism type: unspecified Chronicity: acute Acute cor pulmonale presence: without acute cor pulmonale Qualified Code(s): I26.99 - Other pulmonary embolism without acute cor pulmonale (7) Dysphagia Qualifiers: Dysphagia type: unspecified Qualified Code(s): R13.10 - Dysphagia, unspecified
--- NOTE | 2018-09-16 11:17 | AcuteCare Surgery Consult Note ---
Date of Encounter: 09/16/18 Time of Encounter: 11:20 Assessment and Plan (1) Neck pain Current Visit: Yes Status: Acute Not associated with dysphagia. Recent EGD with dilation on 07/09/18. Right neck pain may be from arthritis. Treat conservatively with antiinflammatory meds. (2) Pulmonary embolism Current Visit: Yes Status: Acute chonic and stable. Primary service is managing. Qualifiers: Pulmonary embolism type: unspecified Chronicity: acute Acute cor pulmonale presence: without acute cor pulmonale Qualified Code(s): I26.99 - Other pulmonary embolism without acute cor pulmonale (3) History of esophageal cancer Current Visit: No Status: Chronic Recent EGD 07/09/18 History of Present Illness Consult date: 09/16/18 Reason for consult: other (neck pain) Requesting physician: Hesham Pillai History of present illness: This 83 y/o male is admitted to [facility] for abdominal pain and neck pain and chronic PE. 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 He reports the pain in his neck is not the usual pain associated with dysphagia that he feels when it is time for a dilation. Last EGD with anastomotic balloon dilation was 07/09/18. He complains of lateral right neck pain. He is scheduled to have his subq port removed by IR today. He denies any dysphagia currently. He denies abdominal pain today. Denies CP. Reports SOB but states that this is chronic. Denies fever. Past Med Surg Social Fam HX - Past Medical History Medical history: cancer, kidney stones, pulmonary embolus, other Additional medical history: lumbar stenosis, lumbar disc disease, ulnar neuropat hy, thoracic spondylosis, neuropathy Psychiatric history: no psych history - Past Surgical History Surgical History: appendectomy, cancer surgery, cholecystectomy, other Additional surgical history: tonsils and adenoids, kyphoplasty, transhiatal esophagastrectomy - Social History Smoking Status: Never smoker Smokeless Tobacco Status: No Alcohol use: none Drug use: none - Family History Brother Living Status: Medications and Allergies Tramadol HCl [Ultram] 50 mg PO Q6H PRN 06/12/18 [History] Allergy/AdvReac Type Severity Reaction Status Date / Time No Known Allergies Allergy Verified 06/21/18 12:26 Review of Systems All systems PM: The remainder of the systems were reviewed and are negative - Constitutional as per HPI, weight loss (stable), no anorexia, no chills, no fatigue, no night sweats - EENT Nose, mouth and throat: no dysphagia, no nasal congestion, no nasal discharge, no sinus pressure, no sore throat, no throat swelling - Cardiovascular dyspnea, no chest pain, no diaphoresis, no edema - Respiratory dyspnea, no cough, no wheezing - Gastrointestinal no abdominal pain, no bloating, no constipation, no diarrhea, no dysphagia, no nausea, no vomiting - Genitourinary no dysuria, no flank pain, no genital pain, no urinary frequency - Musculoskeletal atrophy, neck pain, no back pain, no joint swelling - Integumentary no dry skin, no pruritus, no rash, no wounds, no jaundice - Neurological no dizziness, no focal weakness, no weakness - Psychiatric no anxiety, no change in appetite, no depression - Hematologic/Lymphatic no easy bleeding, no easy bruising General Surgery Exam Initial Vital Signs Temp Pulse Resp BP Pulse Ox 98.3 F 71 18 133/83 100 09/12/18 15:06 09/12/18 15:09/12/18 15:09/12/18 15:09/12/18 15:06 - General physical appearance well developed, no distress, cachectic. negative: jaundice - Eyes PERRL, normal ocular movement. negative: icteric - ENT normal mucosa, no congestion. negative: nasal discharge - Neck no masses, trachea midline, no lymphadectomy, no venous distension - Respiratory normal respiratory effort, clear to auscultation - Cardiovascular Cardiovascular exam: Present: RRR. Absent: murmurs - Abdomen Abdomen general surgery: Present: bowel sounds present, soft, non tender. Absent: distended - Integumentary Integumentary general surgery: Present: warm and dry - Neurologic Present: CN 2-12 grossly intact, normal coordination - Musculoskeletal Present: normal gait, normal posture - Psychiatric Psychiatric general surgery: Present: A&Ox3, appropriate Exam Initial Vital Signs Temp Pulse Resp BP Pulse Ox 98.3 F 71 18 133/83 100 09/12/18 15:06 09/12/18 15:09/12/18 15:09/12/18 15:06 09/12/18 15:06 Results - Labs 09/15/18 06:20 09/15/18 06:20 Abnormal lab results RBC 3.90 M/mcL (4.19-5.50) L 09/15/18 06:20 Hgb 12.7 g/dL (12.9-16.9) L 09/15/18 06:20 Hct 37.3 % (37.5-50.1) L 09/14/18 07:11 MCV 100.7 fL (83.0-100.0) H 09/12/18 15:21 MPV 8.8 fL (9.4-12.4) L 09/15/18 06:20 0.5 K/mcL (0.6-4.6) L 09/15/18 06:20 1718 ng/mLFEU (0-500) H 09/12/18 15:21 Heparin Anti-Xa, Unfract 0.01 IU/mL (0.30-0.70) L 09/12/18 19:28 Carbon Dioxide 31 mEq/L (23-29) H 09/15/18 06:20 1.2 mg/dL (0.3-1.0) H 09/12/18 15:17 Ur Specific [place] > 1.030 (1.010-1.025) H 09/14/18 13:33 Ur Leukocyte Esterase Small (Negative) H 09/14/18 13:33 5-15 per hpf (0-3) H 09/14/18 13:33 Hyaline Casts Moderate per lpf (None-Few) H 09/14/18 13:33 Ur Culture Indicated? YES (NO) A 09/14/18 13:33 All other labs normal. - Imaging CT scan - abdomen: image reviewed (Short segment enteroenteric intussusception in the left lower quadrant with no obstruction. This may be a transient incidental finding, however a lead point mass is not excluded) CT scan - chest: image reviewed (No acute cardiopulmonary process. Chronic PE) CT scan - pelvis: image reviewed Additional studies: Neck CT reveals no soft tissue abnormality. Dilated upper esophagus. Consult Discharge Plan - Plan Referrals: Glenn Riley DO [Primary Care Provider] -
[2018-09-16] MEDS ORDERED: 0.9 % Sodium Chloride 500 ML ONE ×2 (14:55→15:23)
--- NOTE | 2018-09-16 15:16 | Acute Care Surgery Event Note ---
Date of Encounter: 09/16/18 Time of Encounter: 15:15 No endoscopy recommended at this time. Surgery signing off.
[2018-09-16] MEDS ORDERED: *HR* FentaNYL (PF) 100 MCG/2 ML VIAL IVP ONE (15:23)
[2018-09-16] MEDS ORDERED: *HR* FentaNYL (PF) 100 MCG/2 ML VIAL ONE (15:26)
--- NOTE | 2018-09-16 15:51 | IR Procedure Note ---
Date of procedure: 09/16/18 Consent Obtained: Written consent Timeout: Correct patient and procedure verified, Correct site verified, Time out performed, Skin prep completed Local anesthetic: Lidocaine 1% Was there an assistant media planner present: No Results/Findings: left chest port removal Estimated blood loss (cc): 0 Complications: None; Tolerated procedure well Indications: no longer needed Procedure Performed: left chest port removal Site/Technique: left chest Results/Findings (any specimens removed): NA Post Procedure Treatment Plan: no change Specimen: NA
[2018-09-16] MEDS: *HR* OxyCODONE/APAP 5/325 TABLET PO PRN (18:38)
[2018-09-16] MEDS: Mirtazapine 15 MG TABLET PO SCH (20:17)
[2018-09-17] MEDS: *HR* Heparin 5,000 UNIT/ML VIAL SQ SCH ×3 (05:36→22:40)
--- NOTE | 2018-09-17 10:33 | Palliative Progress Note ---
Date of Encounter: 09/17/18 Time of Encounter: 10:00 - Assessment and plan (1) Generalized weakness Current Visit: Yes Status: Acute Assessment and plan: PT/OT treating patient. REcommended ECF for rehab. (2) Neck pain Current Visit: Yes Status: Acute Assessment and plan: Percocet utilized x1 last 24 hours. He is denying any neck pain this am and states he is comfortable. (3) Dysphagia Current Visit: No Status: Resolved Assessment and plan: Tolerated pureed diet well. Patient denies any choking episodes or any difficulty swallowing. Ate 90-100% of meals yesterday. Qualifiers: Dysphagia type: pharyngoesophageal phase Qualified Code(s): R13.14 - Dysphagia, pharyngoesophageal phase (4) Palliative care encounter Current Visit: Yes Status: Acute (5) History of esophageal cancer Current Visit: No Status: Chronic Assessment and plan: No evidence for reoccurrence. (6) Goals of care, counseling/discussion Current Visit: Yes Status: Acute Assessment and plan: Patient transitioned to DNR/DNI yesterday per discussion with , Lin, [facility]. SW planning dc to [facility] if/when approved. Taking po well without issues. Surgery does not feel pt requires EGD at this time. Palliative will sign off. Please call if needed. - Time Spent With Patient Total time spent is greater than 50% in coordination of care (as documented) at patient's floor/unit and/or counseling patient: - Subjective Interval history: Patient awake and alert, pleasantly confused. Watching television. Denies any neck pain at present, states it has been feeling better. No family present. LEft chest port removed yesterday per IR. Surgical consult noted - no scope to be done during this stay. Tolerating pureed diet well. - Constitutional Vitals: Abnormal lab results RBC 3.90 M/mcL (4.19-5.50) L 09/15/18 06:20 Hgb 12.7 g/dL (12.9-16.9) L 09/15/18 06:20 Hct 37.3 % (37.5-50.1) L 09/14/18 07:11 MCV 100.7 fL (83.0-100.0) H 09/12/18 15:21 MPV 8.8 fL (9.4-12.4) L 09/15/18 06:20 0.5 K/mcL (0.6-4.6) L 09/15/18 06:20 1718 ng/mLFEU (0-500) H 09/12/18 15:21 Heparin Anti-Xa, Unfract 0.01 IU/mL (0.30-0.70) L 09/12/18 19:28 Carbon Dioxide 31 mEq/L (23-29) H 09/15/18 06:20 1.2 mg/dL (0.3-1.0) H 09/12/18 15:17 Ur Specific [place] > 1.030 (1.010-1.025) H 09/14/18 13:33 Ur Leukocyte Esterase Small (Negative) H 09/14/18 13:33 5-15 per hpf (0-3) H 09/14/18 13:33 Hyaline Casts Moderate per lpf (None-Few) H 09/14/18 13:33 Ur Culture Indicated? YES (NO) A 09/14/18 13:33 General appearance: Present: no acute distress - Respiratory Respiratory exam: Present: CTAB - Cardiovascular Cardiovascular exam: Present: +S1, +S2, systolic murmur - GI/Abdominal GI/Abdominal exam: Present: normal bowel sounds, soft - Extremities Exam Extremities exam: Present: normal capillary refill, normal inspection - Neurological Exam Neurological exam: Present: alert, strengths equal and symetr throughout (Oriented to name and place only. Reoriented to time and situation. ) - Skin Skin exam: Present: dry, pallor, warm Palliative Quality Palliative Quality: Screen for Code Status: Yes, Screen for Goals of Care: Yes, Screen for Pain: Yes, If Pain Regimen Started, Initiate Bowel Regimen: NA, Screen for Nausea/Vomitting: Yes Code Status: 09/12/18 20:33 Resuscitation Status: Active [RES] Routine Comment: Resuscitation Status: Full Code 09/16/18 11:06 DNR [Resuscitation Status: Active] [RES] Routine Comment: Resuscitation Status: [id number] - Labs CBC & Chem 7: 09/15/18 06:20 09/15/18 06:20 - Impressions Impressions Tunnelled Catheter Removal 09/16/18 00:00 IMPRESSION: Successful subcutaneous left chest Port-A-Cath removal D/ / Donnie Baxter / Donnie Baxter Interpreting Provider: Donnie Baxter - ABG Interpretation ABG results: PT/INR, D-dimer PT 11.6 Seconds (9.4-12.1) 09/12/18 19:28 1718 ng/mLFEU (0-500) H 09/12/18 15:21 Consult Discharge Plan - Plan Referrals: Glenn Riley DO [Primary Care Provider] -
--- NOTE | 2018-09-17 15:51 | Internal Med Progress Note ---
Hospitalist Progress Note - Encounter Date of Encounter: 09/17/18 Time of Encounter: 14:20 - Subjective Interval History: Patient seen and examined this morning at bedside. No acute with a difference. Patient slightly confused compared to yesterday. As per he also appeared more confused Denied any pain. No fevers chills nausea vomiting or diarrhea. Tolerating puree diet well. - Exam Vitals: Temp Pulse Resp BP Pulse Ox 98 F 69 19 130/78 99 09/17/18 10:54 09/17/18 10:54 09/17/18 10:54 09/17/18 10:54 09/17/18 10:54 Exam: Exam General: In no acute distress. cachectic Respiratory exam: CTAB. no accessory muscle use, rales, rhonchi, wheezes Cardiovascular exam: RRR, +S1, +S2. no murmur, gallop, rubs. GI/Abdominal exam: Non-tender, Non-distended, normal bowel sounds, soft, no peritoneal signs. Extremities exam: no pedal edema, no calf tenderness, no musculoskeletal tenderness Neurological exam: CN II-XII intact, AO X3, no focal deficits. Skin exam: No skin rash - Assessment and Plan (1) DVT prophylaxis Current Visit: No Status: Acute (2) Weight loss, unintentional Current Visit: No Status: Chronic (3) History of esophageal cancer Current Visit: No Status: Chronic (4) Chest pain Current Visit: Yes Status: Acute (5) Pulmonary embolism Current Visit: Yes Status: Acute (6) Lung nodule < 6cm on CT Current Visit: Yes Status: Acute (7) Dysphagia Current Visit: Yes Status: Acute (8) Generalized weakness Current Visit: Yes Status: Acute (9) Abdominal pain Current Visit: Yes Status: Acute (10) Neck pain Current Visit: Yes Status: Acute (11) Goals of care, counseling/discussion Current Visit: Yes Status: Acute - Summary of Assessment and Plan Summary of Assessment and Plan: Assessment Acute Non-specific pain of unclear origin possible psychosomatic Failure to thrive sev protein calorie malnutrition Lung nodule Dysphagia Goals of care discussion Chronic CHronic PE asbestosis Dementia h/o esophageal cancer Plan - Non specific pain involving chest, abdomen, neck and back with occasional sensation outside his body. No clear organic etiology discernible with workup till now. CXR unremarkable. CT abd/pelvis with possible enteroenteric intussuception but not likely per surgery who was contacted. CTA with chronic PE in LLL, soft tissue CT negative for acute abnormality. UA unremarkable without any blood with the nephrolithiasis visible on CT. - No further treatment for chronic PE. Pulm signed off - c/w mirtazapine for appetite stimulation. No plan for esophageal dilation per surgery. Progress diet as tolerated - s/p port removal. - PT recommended SNF placement. Currenlty placement being discussed with SW. - Palliative care consulted for goals of care discussion. Patient now DNR-CCA-DNI - Time Spent with Patient Total time spent is greater than 50% in coordination of care (as documented) at patient's floor/unit and/or counseling patient: Internal Medicine: Result - Labs CBC & Chem 7: 09/15/18 06:20 09/15/18 06:20 - ABG Interpretation ABG results: PT/INR, D-dimer PT 11.6 Seconds (9.4-12.1) 09/12/18 19:28 1718 ng/mLFEU (0-500) H 09/12/18 15:21 - Impressions Impressions Tunnelled Catheter Removal 09/16/18 00:00 IMPRESSION: Successful subcutaneous left chest Port-A-Cath removal D/ / Donnie Baxter / Donnie Baxter Interpreting Provider: Donnie Baxter Consult Discharge Plan - Plan Referrals: Glenn Riley DO [Primary Care Provider] - (4) Chest pain Qualifiers: Chest pain type: unspecified Qualified Code(s): R07.9 - Chest pain, unspecified (5) Pulmonary embolism Qualifiers: Pulmonary embolism type: unspecified Chronicity: acute Acute cor pulmonale presence: without acute cor pulmonale Qualified Code(s): I26.99 - Other pulmonary embolism without acute cor pulmonale (7) Dysphagia Qualifiers: Dysphagia type: unspecified Qualified Code(s): R13.10 - Dysphagia, unspecified
[2018-09-17] MEDS: Mirtazapine 15 MG TABLET PO SCH (22:40)
[2018-09-18] MEDS: *HR* Heparin 5,000 UNIT/ML VIAL SQ SCH (06:43)
[2018-09-18 11:57] VITALS: BP 116/67
--- NOTE | 2018-09-18 15:54 | Discharge Summary ---
- NOTES TO OUTPATIENT PROVIDER Notes to Outpatient Provider: Patient will need to follow up with surgery as outpatient for possible esophageal dilation within a month. Date of Encounter: 09/18/18 Time of Encounter: 10:51 - Discharge Diagnosis (1) DVT prophylaxis Priority: Secondary Status: Acute (2) Weight loss, unintentional Priority: Primary Status: Chronic (3) History of esophageal cancer Priority: Secondary Status: Chronic (4) Chest pain Priority: Primary Status: Acute Qualifiers: Chest pain type: other chest pain Qualified Code(s): R07.89 - Other chest pain; R07.8 - Other chest pain (5) Pulmonary embolism Priority: Primary Status: Acute Qualifiers: Pulmonary embolism type: unspecified Chronicity: acute Acute cor pulmonale presence: without acute cor pulmonale Qualified Code(s): I26.99 - Other pulmonary embolism without acute cor pulmonale (6) Lung nodule < 6cm on CT Priority: Primary Status: Acute (7) Dysphagia Priority: Primary Status: Acute Qualifiers: Dysphagia type: unspecified Qualified Code(s): R13.10 - Dysphagia, unspecified (8) Generalized weakness Priority: Primary Status: Acute (9) Abdominal pain Priority: Primary Status: Acute Qualifiers: Abdominal location: right upper quadrant Qualified Code(s): R10.11 - Right upper quadrant pain (10) Neck pain Priority: Primary Status: Acute (11) Goals of care, counseling/discussion Priority: Secondary Status: Acute Hospital course: Mr. 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 Patient had a CT scan which showed possible intussusception however per surgeon it was not likely true intussusception as it was localized to previous J-tube surgical site. 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 Patient was started on mirtazapine for appetite stimulation given emaciation due to decreased by mouth intake. Patient had his port removed given his general debility to prevent erosion of his skin by IR. Surgical consult was obtained to evaluate for possible dilation of esophagus however given recent CT of previous procedures it was not recommended during hospitalization. Palliative care followed the patient and patient was made DNR comfort care arrest DNI. Patient was seen by physical therapy who recommended rehabilitation however after discussion with social staff worker patient and patient's decided to go home with home health. Patient was lucid most of the time however had episodes where he is more confused than usual. He was otherwise stable during the hospital stay and no organic cause of his pain was found. He remained pain- free during the last 3 days of his hospital stay. He is otherwise stable to be discharged with home health. Prescription for mirtazapine was given. Discharge discussed with: patient, family, nurse, social work, case management - Time Spent with Patient Total time spent providing and/or coordinating discharge services: Time spent: Greater than 30 minutes (40) - Discharge Medications Prescriptions: New Mirtazapine [Remeron] 7.5 mg PO HS 30 Days #30 tablet Continued Tramadol HCl [Ultram] 50 mg PO Q6H PRN PRN Reason: Mild To Moderate Pain Home Medications: Tramadol HCl [Ultram] 50 mg PO Q6H PRN 06/12/18 [History] Mirtazapine [Remeron] 7.5 mg PO HS 30 Days #30 tablet 09/18/18 [Rx] Allergies/Adverse Reactions: Allergy/AdvReac Type Severity Reaction Status Date / Time No Known Allergies Allergy Verified 06/21/18 12:26 Date of admission: 09/15/18 15:42 Primary care physician: Thiago Riley DO Consults: 09/12/18 21:01 Consult to Nutrition [CONS] Routine Comment: Consulting Provider: NUTRITION Reason for Dietary Consult: PO Supplementation 09/13/18 09:48 Consult to Pulmonology [CONS] Routine Consulting Provider: Pulm [facility] Sleep Theresa Reason for Consult: PE Call Completed: Yes 09/13/18 10:16 Consult to Oncology Hematology [CONS] Routine Consulting Provider: Dick Watson Reason for Consult: PE history of esophageal cancer Call Completed: Yes 09/13/18 10:46 Consult to Occupational Therapy [CONS] Routine Comment: Evaluate, develop and implement POC Reason for Consult: Generalized weakness Does patient have active BEDREST order?: No Is patient medically & hemodynamically stable?: Yes Patient assessed for mobility or mobilized this visit?: No Consult to Physical Therapy [CONS] Routine Comment: Evaluate, develop and implement POC Reason for Consult: Generalized weakness Does patient have active BEDREST order?: No Is patient medically & hemodynamically stable?: Yes Patient assessed for mobility or mobilized this visit?: No 09/13/18 10:47 Consult to Tank Car Inspector [CONS] Routine Reason for SW Consult: Discharge plan 09/14/18 10:59 Consult to Interventional Radiology [CONS] Routine Consulting Provider: Radiology Interventional Cols Reason for Consult: power port removal Call Completed: Yes 09/15/18 12:28 Consult to Palliative Care [CONS] Routine Comment: Consulting Provider: Palliative Care Theresa Reason for Consult: goals of care discussion Call Completed: Yes 09/16/18 09:56 Consult to Surgery [CONS] Routine Consulting Provider: Acute Care Surgery Reason for Consult: need for esophageal dilation Call Completed: Yes 09/17/18 05:22 Consult to Pastoral Services [CONS] Routine Comment: Discharging clinician: Hesham Pillai - Constitutional Vitals: Temp Pulse Resp BP Pulse Ox 97.9 F 47 20 116/67 98 09/18/18 07:29 09/18/18 11:56 09/18/18 11:56 09/18/18 11:56 09/18/18 11:56 Exam: Exam General: In no acute distress. cachectic Respiratory exam: CTAB. no accessory muscle use, rales, rhonchi, wheezes Cardiovascular exam: RRR, +S1, +S2. no murmur, gallop, rubs. GI/Abdominal exam: Non-tender, Non-distended, normal bowel sounds, soft, no peritoneal signs. Extremities exam: no pedal edema, no calf tenderness, no musculoskeletal tenderness Neurological exam: CN II-XII intact, AO X3, no focal deficits. Skin exam: No skin rash - Patient Status Disposition: Home Health Service Condition: Undetermined - Discharge Instructions Follow Up With: Glenn Riley DO [Primary Care Provider] - 09/24/18 2:15 pm Additional Instructions: Follow-up appointments: If there is not an appointment listed below, please call your physician and s jale a follow-up appointment. If you have congestive heart failure and your symptoms return, make an appointment with your physician. Medication List: Carry an up to date list of medications you are taking at all time. We have given you an updated medication list including any new medications that you have been prescribed. Please provide that list to your primary provider Symptoms: If your condition changes or you experience any of the following symptoms, notify your physician immediately: Unusual or worsening pain, fever, persistent nausea and vomiting, bleeding, increase in swelling (especially in your legs), sudden weight gain, extreme dizziness, chest pain, increased drainage or redness from a wound or incision. Go to the emergency department if you experience a problem with breathing. Weights: If you have a history of swelling or shortness of breath, weigh yourself daily and notify your physician if you have a weight gain of two or more pounds in one day or 5 or more pounds in a week. If you experience any of the warning signs for stroke: Sudden numbness or weakness of the face, arm or leg; especially on one side of the body, sudden confusion, trouble speaking or understanding, sudden trouble seeing in one or both eyes, sudden trouble walking, dizziness, loss of balance or coordination, sudden sever headache with no cause; Call 911 or go to the emergency room. Stroke is a medical emergency. Some risk factors for stroke: Age, cigarette smoking, diabetes, excessive alcohol consumption, family history, high blood pressure, overweight, physical inactivity, prior stroke, heart attack, diagnosis of carotid artery stenosis or other artery disease. If you smoke, STOP: Smoking or tobacco use significantly increases your risk of heart and lung disease. Your chance of disease greatly increases if you continue to smoke. For more information, call the [place] tobacco quit line for smoking cessation 1-849-SMHW-NOW ( )
--- NOTE | 2018-09-18 16:13 | Physician Discharge Referral ---
Home Health/Hosp Referral Info Transfer to: Home Health - Diagnosis (1) DVT prophylaxis Status: Acute (2) Weight loss, unintentional Status: Chronic (3) History of esophageal cancer Status: Chronic (4) Chest pain Status: Acute (5) Pulmonary embolism Status: Acute (6) Lung nodule < 6cm on CT Status: Acute (7) Dysphagia Status: Acute (8) Generalized weakness Status: Acute (9) Abdominal pain Status: Acute (10) Neck pain Status: Acute (11) Goals of care, counseling/discussion Status: Acute - Respiratory Orders Smoking Cessation: Smoking cessation has been advised. For more information, call the [place] Tobacco Quit Line at 8-501-AWUYNOW. - Services Needed Following services are medically necessary services: Nursing, Physical Therapy, Occupational Therapy - Transfer Medications Prescriptions: Mirtazapine [Remeron] 7.5 mg PO HS 30 Days #30 tablet Home Medications: Tramadol HCl [Ultram] 50 mg PO Q6H PRN 06/12/18 [History] Mirtazapine [Remeron] 7.5 mg PO HS 30 Days #30 tablet 09/18/18 [Rx] Allergies/Adverse Reactions: Allergy/AdvReac Type Severity Reaction Status Date / Time No Known Allergies Allergy Verified 06/21/18 12:26 Certification: Further, I certify that my clinical findings support that this patient is homebound (i.e. absences from home require considerable and taxing effort and are for medical reasons or hindu services or infrequently or short duration when for other reasons) because: Homebound Reason: Patient requires assistance of a person or device to safely leave home Attestation: My signature below is to certify that this patient is under my care and that I, or nurse practitioner, or a physician's enrichment assistant working with me, has a [id number] encounter with this patient.
== END 2018-09-18 16:29 | disposition home health service (06) | DRG 391 ==
LOC: 2NENU 14:52 → EMEROOARM 14:52 → SUATTDRO 20:29 → 2NENU 21:16
PROVIDERS: ADMIT Internal Medicine; ATTEND Internal Medicine

== ENCOUNTER 2019-11-04 07:30 | Inpatient (IN) ==
[2019-11-04] MEDS ORDERED: *HR* FentaNYL (PF) 100 MCG/2 ML VIAL IVP STA (07:43)
[2019-11-04 08:03] LABS: Basophils % 0.2 %; Hematocrit 36.7 % (37.5-50.1); Hemoglobin 11.9 g/dL (12.9-16.9); Immature Granulocytes % 0.5 % (0-4); Lymphocytes # 0.4 K/mcL (0.6-4.6); Lymphocytes % 2.6 %; Mean Corpuscular HGB Conc 32.4 g/dL (31.6-35.5); Mean Corpuscular Hemoglobin 31.2 pg (28.0-33.3); Mean Corpuscular Volume 96.1 fL (83.0-100.0); Mean Platelet Volume 8.3 fL (9.4-12.4); Monocytes # 0.6 K/mcL (0.0-1.3); Monocytes % 3.9 %; Neutrophils # 13.9 K/mcL (1.6-8.9); Platelet Count 275 K/mcL (140-400); Red Blood Count 3.82 M/mcL (4.19-5.50); Red Cell Distribution Width 15.5 % (11.5-14.5); Segmented Neutrophils % 92.8 %
[2019-11-04 08:15] LABS: Prothrombin Time 11.5 Seconds (9.4-12.1)
[2019-11-04 08:18] LABS: Activated Partial Thrombo Time 29.8 Seconds (26.0-36.0); Alanine Aminotransferase 23 Units/L (7-52); Albumin 3.9 g/dL (3.5-5.7); Albumin/Globulin Ratio 1.4 (1.1-2.2); Alkaline Phosphatase 102 Units/L (34-104); Aspartate Amino Transferase 24 Units/L (13-39); BUN/Creatinine Ratio 21 (6-26); Bilirubin,Direct 0.2 mg/dL (0.0-0.2); Bilirubin,Indirect 0.8 mg/dL (0.0-1.0); Blood Urea Nitrogen 20 mg/dL (8-23); Calcium 9.4 mg/dL (8.6-10.3); Carbon Dioxide 29 mEq/L (23-29); Chloride 104 mEq/L (98-107); Globulin 2.8 g/dL (2.4-3.5); Glucose 94 mg/dL (70-105); Lipase 13 Units/L (11-82); Osmolality,Calculated 292 (280-300); Potassium 3.9 mEq/L (3.5-5.1); Sodium 140 mEq/L (136-145); Total Protein 6.7 g/dL (6.4-8.9); eGFR For African Americans > 60 (> 60); eGFR For Non-African Americans > 60 (> 60)
[2019-11-04] MEDS ORDERED: *HR* Promethazine 25 MG/ML VIAL IVP PRN (09:45)
[2019-11-04] MEDS ORDERED: *HR* OxyCODONE Immed Rel 5 MG TABLET PO PRN (09:45)
[2019-11-04] MEDS ORDERED: Acetaminophen 325 MG TABLET PO PRN (09:45)
[2019-11-04] MEDS ORDERED: *HR* HYDROcodone/Acet 5/325 mg TABLET PO PRN (09:45)
[2019-11-04] MEDS ORDERED: Perflutren Lipid Microsphere 1.3 ML in 0.9 % Sodium Chloride 8.7 ML IVP PRN (10:38)
[2019-11-04 11:07] LABS: Bilirubin,Urine Negative (Negative); Blood,Urine Small (Negative); Clarity,Urine Clear (Clear); Color,Urine Light-Yellow (Yellow); Glucose,Urine (UA) Normal (Normal); Ketones,Urine Trace mg/dL (Negative); Leukocyte Esterase,Urine Negative (Negative); Mucus,Urine Few per lpf (None-Few); Nitrite,Urine Negative (Negative); Protein,Urine Trace mg/dL (Neg-Trace); RBC,Urine 30-50 per hpf (0-3); Specific Gravity,Urine 1.022 (1.010-1.025); Squamous Epithelial Cell,Urine Few per hpf (None-Few); Urobilinogen,Urine Normal (Normal); WBC,Urine 0-3 per hpf (0-3)
[2019-11-04 11:13] LABS: Troponin I < 0.03 ng/mL (< 0.04)
[2019-11-04] MEDS ORDERED: CefTRIAXone 1,000 MG VIAL ONE (14:44)
[2019-11-04] MEDS: cefTRIAXone 1,000 MG in 0.9 % Sodium Chloride Mini Bag 100 ML IVPB SCH ×3 (15:01→20:55)
[2019-11-05] MEDS: cefTRIAXone 1,000 MG in 0.9 % Sodium Chloride Mini Bag 100 ML IVPB SCH ×2 (05:15→18:00)
[2019-11-05 07:02] LABS: Hematocrit 39.2 % (37.5-50.1); Hemoglobin 12.4 g/dL (12.9-16.9); INR 1.1; Mean Corpuscular HGB Conc 31.6 g/dL (31.6-35.5); Mean Corpuscular Hemoglobin 31.6 pg (28.0-33.3); Mean Corpuscular Volume 99.7 fL (83.0-100.0); Mean Platelet Volume 8.9 fL (9.4-12.4); Platelet Count 228 K/mcL (140-400); Prothrombin Time 12.2 Seconds (9.4-12.1); Red Blood Count 3.93 M/mcL (4.19-5.50); Red Cell Distribution Width 15.4 % (11.5-14.5); White Blood Count 12.1 K/mcL (4.3-11.1)
[2019-11-05 07:27] LABS: BUN/Creatinine Ratio 21 (6-26); Blood Urea Nitrogen 18 mg/dL (8-23); Calcium 8.7 mg/dL (8.6-10.3); Carbon Dioxide 23 mEq/L (23-29); Chloride 103 mEq/L (98-107); Glucose 92 mg/dL (70-105); Osmolality,Calculated 286 (280-300); Potassium 4.1 mEq/L (3.5-5.1); Sodium 137 mEq/L (136-145); eGFR For African Americans > 60 (> 60); eGFR For Non-African Americans > 60 (> 60)
[2019-11-05] MEDS ORDERED: Ondansetron 4 MG/2 ML VIAL ONE (09:20)
[2019-11-05] MEDS ORDERED: *HR* Propofol 200 MG/20 ML VIAL IVP ONE (09:20)
[2019-11-05] MEDS ORDERED: *HR* FentaNYL (PF) 100 MCG/2 ML VIAL ONE (09:20)
[2019-11-05] MEDS ORDERED: Lidocaine -MPF 2% 2 ML VIAL ONE (09:20)
[2019-11-05] MEDS ORDERED: Dexamethasone 4 MG/ML VIAL ONE (09:20)
[2019-11-05] MEDS ORDERED: *HR* PHENYLEPHRINE 1,000 MCG/10 ML SYRINGE IVP ONE ×2 (09:24→11:13)
[2019-11-05] MEDS ORDERED: *HR* Succinylcholine 200 MG/10 ML VIAL IVP ONE (09:24)
[2019-11-05] MEDS ORDERED: Ethanol\\Acetic Acid\\Na Ace\\Ben 1,000 ML IRRIG.SOLN IR ONE (09:49)
[2019-11-05] MEDS ORDERED: *HR* HYDROmorphone PF 0.5 MG/0.5 ML SYRINGE IVP PRN (09:55)
[2019-11-05] MEDS ORDERED: *HR* Promethazine 25 MG/ML VIAL IVP PRN ×2 (09:55→13:22)
[2019-11-05] MEDS ORDERED: *HR* OxyCODONE Immed Rel 5 MG TABLET PO PRN ×2 (09:55→13:22)
[2019-11-05] MEDS ORDERED: Ondansetron 4 MG/2 ML VIAL IVP ONE (09:55)
[2019-11-05] MEDS ORDERED: *HR* Metoprolol 5 MG/5 ML VIAL IVP PRN (09:55)
[2019-11-05] MEDS ORDERED: Acetaminophen IV 1,000 MG/100 ML BAG ONE (09:56)
[2019-11-05] MEDS ORDERED: Tranexamic Acid 1,000 MG/10 ML VIAL ONE (10:52)
[2019-11-05] MEDS ORDERED: EPHEDrine 50 MG/ML VIAL ONE (11:16)
[2019-11-05] MEDS ORDERED: Perflutren Lipid Microsphere 1.3 ML in 0.9 % Sodium Chloride 8.7 ML IVP PRN (13:22)
[2019-11-05] MEDS ORDERED: *HR* HYDROcodone/Acet 5/325 mg TABLET PO PRN (13:22)
[2019-11-05] MEDS ORDERED: Acetaminophen 325 MG TABLET PO PRN (13:22)
[2019-11-05] MEDS ORDERED: polyethylene glycoL 3350 17 GM POWD.PACK PO PRN (14:52)
[2019-11-05] MEDS ORDERED: ceFAZolin 2,000 MG in 0.9 % Sodium Chloride 100 ML IVPB SCH (16:00)
[2019-11-06 05:34] LABS: Basophils % 0.1 %; Hematocrit 30.3 % (37.5-50.1); Immature Granulocytes % 0.3 % (0-4); Lymphocytes # 0.3 K/mcL (0.6-4.6); Lymphocytes % 2.6 %; Mean Corpuscular HGB Conc 32.3 g/dL (31.6-35.5); Mean Corpuscular Hemoglobin 31.6 pg (28.0-33.3); Mean Corpuscular Volume 97.7 fL (83.0-100.0); Mean Platelet Volume 8.5 fL (9.4-12.4); Monocytes % 7.8 %; Neutrophils # 11.3 K/mcL (1.6-8.9); Platelet Count 241 K/mcL (140-400); Red Cell Distribution Width 15.4 % (11.5-14.5); Segmented Neutrophils % 89.2 %; White Blood Count 12.6 K/mcL (4.3-11.1)
[2019-11-06 05:38] LABS: Hemoglobin 9.8 g/dL (12.9-16.9)
[2019-11-06 05:53] LABS: BUN/Creatinine Ratio 29 (6-26); Blood Urea Nitrogen 32 mg/dL (8-23); Calcium 8.4 mg/dL (8.6-10.3); Carbon Dioxide 24 mEq/L (23-29); Chloride 103 mEq/L (98-107); Glucose 139 mg/dL (70-105); Osmolality,Calculated 291 (280-300); Potassium 4.5 mEq/L (3.5-5.1); Sodium 136 mEq/L (136-145); eGFR For African Americans > 60 (> 60); eGFR For Non-African Americans > 60 (> 60)
[2019-11-06] MEDS: cefTRIAXone 1,000 MG in 0.9 % Sodium Chloride Mini Bag 100 ML IVPB SCH (09:28)
[2019-11-06] MEDS: Aspirin Enteric Coated 81 MG Tablet PO SCH (09:29)
[2019-11-06] MEDS: Sennosides/Docusate Sodium TABLET PO SCH (09:29)
[2019-11-06 09:51] LABS: Hematocrit 33.4 % (37.5-50.1); Hemoglobin 10.6 g/dL (12.9-16.9)
[2019-11-06 13:22] LABS: Hematocrit 33.4 % (37.5-50.1); Hemoglobin 10.4 g/dL (12.9-16.9)
[2019-11-06 16:49] LABS: Hematocrit 31.7 % (37.5-50.1); Hemoglobin 10.1 g/dL (12.9-16.9)
[2019-11-06 21:29] LABS: Hematocrit 29.9 % (37.5-50.1); Hemoglobin 9.4 g/dL (12.9-16.9)
[2019-11-07 06:59] LABS: BUN/Creatinine Ratio 31 (6-26); Blood Urea Nitrogen 38 mg/dL (8-23); Calcium 8.6 mg/dL (8.6-10.3); Carbon Dioxide 22 mEq/L (23-29); Chloride 106 mEq/L (98-107); Glucose 102 mg/dL (70-105); Osmolality,Calculated 295 (280-300); Potassium 4.7 mEq/L (3.5-5.1); Sodium 138 mEq/L (136-145); eGFR For African Americans > 60 (> 60); eGFR For Non-African Americans 57 (> 60)
[2019-11-07 07:08] LABS: Basophils % 0.1 %; Eosinophils % 0.1 %; Hematocrit 30.5 % (37.5-50.1); Hemoglobin 9.2 g/dL (12.9-16.9); Immature Granulocytes % 0.4 % (0-4); Lymphocytes # 0.5 K/mcL (0.6-4.6); Lymphocytes % 3.7 %; Mean Corpuscular HGB Conc 30.2 g/dL (31.6-35.5); Mean Corpuscular Hemoglobin 31.2 pg (28.0-33.3); Mean Corpuscular Volume 103.4 fL (83.0-100.0); Mean Platelet Volume 8.8 fL (9.4-12.4); Monocytes # 1.2 K/mcL (0.0-1.3); Monocytes % 8.7 %; Platelet Count 243 K/mcL (140-400); Red Blood Count 2.95 M/mcL (4.19-5.50); Red Cell Distribution Width 15.9 % (11.5-14.5); White Blood Count 13.8 K/mcL (4.3-11.1)
[2019-11-07] MEDS: Sennosides/Docusate Sodium TABLET PO SCH (09:22)
[2019-11-07] MEDS: Aspirin Enteric Coated 81 MG Tablet PO SCH (09:22)
[2019-11-08] MEDS: Sennosides/Docusate Sodium TABLET PO SCH (07:38)
[2019-11-08] MEDS: Aspirin Enteric Coated 81 MG Tablet PO SCH (07:38)
[2019-11-08 08:50] LABS: Basophils % 0.1 %; Eosinophils % 0.1 %; Hematocrit 31.1 % (37.5-50.1); Hemoglobin 9.8 g/dL (12.9-16.9); Immature Granulocytes % 0.3 % (0-4); Lymphocytes # 0.4 K/mcL (0.6-4.6); Lymphocytes % 3.9 %; Mean Corpuscular HGB Conc 31.5 g/dL (31.6-35.5); Mean Corpuscular Volume 101.6 fL (83.0-100.0); Mean Platelet Volume 8.5 fL (9.4-12.4); Monocytes # 0.6 K/mcL (0.0-1.3); Monocytes % 5.6 %; Platelet Count 229 K/mcL (140-400); Red Blood Count 3.06 M/mcL (4.19-5.50); Red Cell Distribution Width 15.8 % (11.5-14.5)
[2019-11-08 09:26] LABS: BUN/Creatinine Ratio 33 (6-26); Blood Urea Nitrogen 26 mg/dL (8-23); Calcium 8.7 mg/dL (8.6-10.3); Carbon Dioxide 28 mEq/L (23-29); Chloride 107 mEq/L (98-107); Glucose 114 mg/dL (70-105); Osmolality,Calculated 296 (280-300); Potassium 4.2 mEq/L (3.5-5.1); Sodium 140 mEq/L (136-145); eGFR For African Americans > 60 (> 60); eGFR For Non-African Americans > 60 (> 60)
[2019-11-09 03:02] LABS: Hematocrit 31.3 % (37.5-50.1); Hemoglobin 9.9 g/dL (12.9-16.9); Mean Corpuscular HGB Conc 31.6 g/dL (31.6-35.5); Mean Corpuscular Hemoglobin 31.1 pg (28.0-33.3); Mean Corpuscular Volume 98.4 fL (83.0-100.0); Mean Platelet Volume 8.3 fL (9.4-12.4); Platelet Count 254 K/mcL (140-400); Red Blood Count 3.18 M/mcL (4.19-5.50); Red Cell Distribution Width 15.7 % (11.5-14.5)
[2019-11-09 03:22] LABS: BUN/Creatinine Ratio 31 (6-26); Blood Urea Nitrogen 25 mg/dL (8-23); Calcium 8.9 mg/dL (8.6-10.3); Carbon Dioxide 28 mEq/L (23-29); Chloride 108 mEq/L (98-107); Glucose 98 mg/dL (70-105); Osmolality,Calculated 300 (280-300); Potassium 3.8 mEq/L (3.5-5.1); Sodium 143 mEq/L (136-145); eGFR For African Americans > 60 (> 60); eGFR For Non-African Americans > 60 (> 60)
[2019-11-09] MEDS ORDERED: Aspirin Enteric Coated 81 MG Tablet PO SCH (09:30)
[2019-11-09 10:33] LABS: SARS-CoV-2 by NAA Not Detected (Not Detect)
[2019-11-09] MEDS: Sennosides/Docusate Sodium TABLET PO SCH (11:05)
[2019-11-09 11:10] VITALS: BP 139/82
== END 2019-11-09 16:36 | DRG 469 ==
LOC: EMEROOARM 07:30 → 3NENU 10:09 → SUATTDRO 10:09 → 3NENU 11:10
PROVIDERS: ADMIT Internal Medicine; ATTEND Family Medicine